=== PATIENT | male | born 1950 | race Caucasian/White ===

== ENCOUNTER 2017-06-14 06:00 | Inpatient (IN) | payer MEDICARE, BC ==
--- NOTE | 2017-06-06 08:52 | HP ---
AMENDED REPORT NOW INCLUDES COSIGNER DESIGNATION - ESIGNED BEFORE ADJUSTMENT DATE OF ADMISSION: 06/14/17 DATE OF OFFICE VISIT: 06/05/17 SURGEON: Negrita Schulz MD ATTENDING PHYSICIAN: Negrita Schulz MD * (dictated by HOA Ordonez) PROCEDURE: Left total knee arthroplasty. CHIEF COMPLAINT: Left knee pain. HISTORY OF PRESENT ILLNESS: Mr. Saez is a 66-year-old gentleman with complaints of left knee pain secondary to advanced osteoarthritis. He has failed conservative management and has elected to proceed with a left total knee arthroplasty which is scheduled for 06/14/[address] Schulz. PAST MEDICAL HISTORY: 1. Hypertension. 2. Diabetes. 3. High cholesterol. 4. Aortic stenosis. 5. Heart murmur. 6. GERD. 7. CVA. 8. Vascular dementia. PAST SURGICAL HISTORY: 1. Left knee reconstruction. 2. Multiple arthroscopies of the left knee. 3. Cataract removal and tonsillectomy. CURRENT MEDICATIONS: 1. Aspirin 81 mg a day. 2. Diltiazem 240 mg every day. 3. Crestor 5 mg every day. 4. Exelon patch. 5. Glucophage 500 mg two by mouth twice a day. 6. Namenda 5 mg. 7. Senna laxative. 8. Aleve. 9. Clonazepam 1 mg. ALLERGIES: No known drug allergies. FAMILY HISTORY: Unknown; he's adopted. SOCIAL HISTORY: He's a 66-year-old gentleman. He lives with his . He does not smoke, use drugs, uses alcohol rarely. REVIEW OF SYSTEMS: A complete 14-point review of systems was reviewed with the patient. The patient was positive for diabetes and a history of multiple strokes. PHYSICAL EXAMINATION GENERAL: He's well developed, well nourished, in no acute distress. VITAL SIGNS: He stands 5 feet 7 inches tall, weighs 155 pounds. His blood pressure is 140/77, and his heart rate is 75. HEENT: Normocephalic, atraumatic. NECK: Supple. No palpable lymph nodes. PULMONARY: The lungs are clear to auscultation bilaterally. CARDIO: Regular rate and rhythm. Strong S1 and S2. ABDOMEN: Soft, nontender, nondistended. NEUROLOGIC: Alert and oriented x3. Cranial nerves II through XII are intact. MUSCULOSKELETAL: Left lower extremity skin is intact. There are no open wounds or abrasions. 5 to 120 degrees of flexion, MCL laxity, negative Gomez's, 5/5 lower extremity strength. 2+ dorsalis pedis pulses and intact sensation. ASSESSMENT AND PLAN: Mr. Saez is a 65-year-old gentleman with complaints of left knee pain secondary to post-traumatic arthritis, which is quite severe, of his left knee. He has failed conservative management and has elected to proceed with a left total knee arthroplasty which is scheduled for 06/14/[address] Schulz discussed the risks and benefits of the surgery at today's visit, and all of his questions were answered. Percocet, Colace and Coumadin were sent to his pharmacy for post-operative pain control and DVT prophylaxis. He will see Dr. Schulz two weeks after the surgery. HOA ORDONEZ [id number]/[facility] #: [id number] [facility] CENTERMiladis
[~2017-06-14 06:00] MED LIST: Buffered Lidocaine 0.9% SYRIN* 5 ML/SYR SYRINGE INTRADERM ONE; Dexamethasone IV* 4 MG/ML 1 ML (4 MG) IV SLOW PU ONE; Famotidine IV* 10 MG/ML 2 ML (20 mg) IV ONE
[2017-06-14] MEDS ORDERED: ceFAZolin 2 GM PREMIX(*) 2 GM/50 ML BAG IVPB ONE (06:11)
[2017-06-14] MEDS ORDERED: Dexamethasone IV* 4 MG/ML 1 ML (4 MG) ONE (06:11)
[2017-06-14] MEDS ORDERED: Famotidine IV* 10 MG/ML 2 ML (20 mg) ONE (06:11)
[2017-06-14] MEDS ORDERED: KETAMINE HCL* 50 MG/ML 10 ML VIAL ONE (07:29)
[2017-06-14] MEDS ORDERED: Ondansetron INJ* 2 MG/ML VIAL ONE (07:30)
[2017-06-14] MEDS ORDERED: Phenylephrine INJ* 10 MG/ML 1 ML VIAL (10 MG) ONE (07:30)
[2017-06-14] MEDS ORDERED: Bupivacaine 0.5% SDV PF* 30 ML VIAL ONE (07:30)
[2017-06-14] MEDS ORDERED: Morphine PF AMP (0.5MG/ML)* 5 MG/10 ML AMP ONE (07:30)
[2017-06-14] MEDS ORDERED: Midazolam* 1 MG/ML 5 ML VIAL (5 MG) ONE (07:30)
[2017-06-14] MEDS ORDERED: Propofol* 10 MG/ML 20 ML BTL IV PUSH ONE ×2 (07:30→10:37)
[2017-06-14] MEDS ORDERED: EPHEDrine (Pressors)* 50 MG/ML VIAL IV PUSH PRN (08:45)
[2017-06-14] MEDS ORDERED: oxyCODONE/Acetamin 5/325 MG* TAB PO PRN ×3 (08:45→11:11)
[2017-06-14] MEDS ORDERED: Nalbuphine* 20 MG/ML 1 ML VIAL IV PRN ×2 (08:45)
[2017-06-14] MEDS ORDERED: DiMENhydriNATE IV* 50 MG/ML VIAL IV PUSH PRN (08:45)
[2017-06-14] MEDS ORDERED: Ondansetron INJ* 2 MG/ML VIAL IV PRN ×2 (08:45→11:11)
[2017-06-14] MEDS ORDERED: Naloxone* 0.4 MG/ML 1 ML VIAL IV PRN (08:45)
[2017-06-14] MEDS ORDERED: fentaNYL* 50 MCG/ML 2 ML VIAL (100 MCG VIAL) IV PRN (08:45)
[2017-06-14] MEDS ORDERED: Phenylephrine IV* 40 MCG/ML 10 ML SYRINGE IV PUSH PRN (08:53)
[2017-06-14] MEDS ORDERED: Ropivacaine* 300 MG in NS 0.9% 250 ML* 240 ML EPIDURAL SCH (09:00)
[2017-06-14] MEDS ORDERED: EPHEDrine (Pressors)* 50 MG/ML VIAL ONE (10:18)
[2017-06-14] MEDS ORDERED: Acetaminophen TAB* 325 MG PO PRN (11:11)
[2017-06-14] MEDS ORDERED: Polyethylene Glycol 3350* 17 GM PACKET PO PRN (11:11)
[2017-06-14] MEDS ORDERED: diPHENhydraMINE IV* 50 MG/ML 1 ml VIAL (BENADRYL) IV PRN (11:11)
[2017-06-14] MEDS ORDERED: Morphine INJ* 2 MG/ML 1 ML SYRINGE IV PRN (11:11)
[2017-06-14] MEDS ORDERED: oxyCODONE TAB* 5 MG TAB PO PRN (11:11)
[2017-06-14] MEDS ORDERED: D5W 1/2 NS 1000 ML BAG* 1,000 ML IV SCH (12:00)
--- NOTE | 2017-06-14 12:50 | RAD ---
INDICATION: Status post left TKA COMPARISON: Preoperative knee radiograph dated May 08, 2017 TECHNIQUE: 2 view radiograph of the left knee. FINDINGS: The recently implanted left knee prosthesis is anatomically aligned in the AP and lateral projections. Expected postsurgical changes include subcutaneous gas and a surgical drain. Overlying the lateral margin of the left lateral compartment there is a 4 mm radiodense focus that appears to be some sort of surgical material. IMPRESSION: 1. Anatomic alignment of left knee prosthesis. 2. Immediately lateral to the lateral joint space is a 4 mm surgical clip. Please correlate to details of the surgery. Findings discussed with HOA Heda over the telephone at 1246 hours on June 14, 2017.
[2017-06-14 13:28] LABS: Hematocrit 31 % (42-52); Hemoglobin 10.4 g/dl (14.0-18.0)
[2017-06-14] MEDS ORDERED: Dextrose 50% Syringe 50 ML* 25 GM/50 ML SYRINGE IV PUSH PRN (14:10)
[2017-06-14] MEDS ORDERED: ceFAZolin 1 GM ADVAN(*) 1 GM in NS 0.9% 50 ML* 50 ML IVPB SCH (14:30)
[2017-06-14] MEDS: Scopolamine 1.5 mg* PATCH TRANSDERM SCH (14:52)
[2017-06-14] MEDS ORDERED: RIVASTIGMINE 4.6 MG TRANSDERM SCH (14:56)
[2017-06-14] MEDS: ceFAZolin 1 GM ADVAN(*) 1 GM in NS 0.9% 50 ML* 50 ML IVPB SCH (15:43)
[2017-06-14] MEDS: Insulin LISPRO* 1 UNITS UNIT SUBCUT SCH (16:00)
[2017-06-14] MEDS: RIVASTIGMINE 4.6 MG TRANSDERM SCH (16:24)
[2017-06-14] MEDS ORDERED: Warfarin TAB(*) 6 MG PO ONE (17:00)
[2017-06-14] MEDS: Docusate CAP* 100 MG PO SCH (20:13)
[2017-06-14] MEDS: Atorvastatin* 10 MG TAB PO SCH (20:14)
[2017-06-14] MEDS: Memantine TAB* 5 MG PO SCH (20:14)
[2017-06-14] MEDS ORDERED: CLONAZEPAM 0.5 MG PO SCH (21:00)
--- NOTE | 2017-06-14 21:30 | CONS ---
CC: Dr. Schulz; Dr. Baxter * CONSULTATION REPORT: DATE OF CONSULT: 06/14/17 REQUESTING PHYSICIAN FOR CONSULTATION: Dr. Schulz. ATTENDING PHYSICIAN WHILE IN THE HOSPITAL: Renetta Estevez DO (report dictated by Eh King NP). REASON FOR MEDICAL CONSULTATION: Evaluation and medical management of comorbid medical conditions. HISTORY OF PRESENTING ILLNESS: I will refer you to Dr. Schulz's H and P for further details. In short, Mr. Saez is a 66-year-old male patient with history of hypertension, diabetes, hyperlipidemia, moderate aortic stenosis, GERD, CVA x2, and history of vascular dementia which he follows Dr. Sarabia for. He sees Dr. Yanez as well and he also follows up with his primary doctor , Dr. Baxter. He has had significant left knee pain for some time. He has been failing out-patient conservative therapy. He sought care with Dr. Schulz who felt that he would benefit from a total knee replacement. The patient opted to undergo total knee replacement today, which he underwent. He was evaluated in the PACU. He states he is feeling well. He actually would like to watch the [employer] game, that is his biggest complaint. He states he feels a little drowsy. He denies having any chest pain or shortness of breath. Denies having any abdominal pain. He states he does not feel nauseous. He states his pain is well controlled in his knee on epidural. Because of his medical problems and medical conditions, we were asked to evaluate in consult. PAST MEDICAL HISTORY: Significant for: 1. Hypertension. 2. Diabetes. 3. Hyperlipidemia. 4. Moderate aortic stenosis. 5. GERD. 6. History of CVA x3. 7. Vascular dementia. PAST SURGICAL HISTORY: 1. He has had a left knee reconstruction. 2. He has had multiple left knee arthroscopies. 3. Cataracts. 4. Tonsillectomy. HOME MEDICATIONS: According to the preop list we obtained include: 1. Diltiazem 240 mg p.o. daily. 2. Clonazepam 0.5 mg at bedtime. 3. Aspirin 81 mg daily. 4. Naproxen 220 mg p.o. daily as needed. 5. 500 mg p.o. b.i.d. 6. Namenda 5 mg p.o. b.i.d. 7. Exelon 1 patch transdermally daily. 8. Senna 2 tabs p.o. at bedtime as needed. 9. Crestor 5 mg daily at bedtime. 10. Geodon 40 mg daily. 11. Colace 100 mg p.o. daily at bedtime as needed. ALLERGIES: To medications include no known drug allergies. FAMILY HISTORY: Unknown as he is adopted. SOCIAL HISTORY: He does not smoke, does not drink. Surrogate decision maker is his . REVIEW OF SYSTEMS: There is no documented fever. He denies having any significant weight change. There is no double vision. There is no ear discharge. He denies having any rhinorrhea. There is no sore throat. No thyroid enlargement. Denies having any chest pain. There is no orthopnea. No nocturnal dyspnea. No abdominal pain. No nausea. No vomiting. No dysuria. No frequency. No seizure. No loss of consciousness. No pruritus and no skin ulcerations. Review of 14 systems completed, all others negative. PHYSICAL EXAM: Vital Signs: Blood pressure 113/62 with the pulse of 55, respirations 17, O2 sat 100% on 2 L, and temperature 96.8. General: At this time, Mr. Saez is a 66-year-old male patient, he appears to be well nourished , well developed. He does not appear to be in any acute distress. He is awake and he is alert. HEENT: Head is atraumatic and normocephalic. Eyes: EOMs are intact. Sclerae anicteric and not pale. Neck: Supple. Throat: Oral mucosa appears to be moist. No oropharyngeal erythema. Heart: Sounds S1 and S2. Regular rate and rhythm. No murmurs, rubs, or gallops. Lungs: Clear to auscultation bilaterally. No wheezes, rales, or rhonchi. Abdomen: Soft, it was flat, nontender. Bowel sounds present. Extremities: Pulses are +2 throughout. Distal CSM checks are intact to the left lower extremity. He is able to move the upper extremity with 5/5 strength. Neurologic: He is awake. He is alert. He is oriented x3. Speech is clear. His tongue midline. He had no gross focal deficits. Skin: Intact with the exception that he has incision to the left knee with a Hemovac that was clean, dry and intact, covered with Corey bandage. DIAGNOSTIC STUDIES/LAB DATA: His labs revealed hemoglobin today at 10.4, hematocrit of 31. His preop labs revealed BUN of 9, creatinine of 0.8. Urine obtained preop was negative. He had an echo preop, which showed progressing aortic stenosis to a moderate degree. His EF was 60% to 65%. He had a preop stress test which showed normal cardiac and nuclear stress test. He did have a brain CT done yesterday, which read no acute intracranial abnormality. He did have a chest x- ray, which revealed no active cardiopulmonary disease. Old medical records were reviewed. ASSESSMENT AND PLAN: Mr. Saez is a 66-year-old male patient with multiple medical problems coming into the orthopedics service today for elective left total knee. Hospitalist service was asked to evaluate in consult. Our recommendations at this point are: 1. Status post left total knee replacement. I will go ahead and defer the management of this to Dr. Schulz and her team. 2. Hypertension. In the setting with him having an epidural and his blood pressure being in the one teens, I am going to hold his meds. We can restart his Cardizem within probably 24 hours and when the epidural is removed. 3. Diabetes, he will be on a lispro sliding scale. 4. Hyperlipidemia. Continue Crestor. 5. Aortic stenosis. He can follow with Dr. Yanez. It is moderate. 6. Gastroesophageal reflux disease. Continue as prescribed. 7. History of cerebrovascular accident. Continue with secondary prevention in the form of aspirin. He will be on Coumadin, but I will restart the aspirin when it is safe with Dr. Schulz. 8. History of vascular dementia. Continue his meds as prescribed and supportive care. 9. DVT prophylaxis. I will defer to the primary team. 10. Code status. Full code. 11. Fluids, electrolytes, and nutrition. I would recommend a consistent carb diet. TIME SPENT: Time spent on the consult was 60 minutes, greater than half the time was spent [id number] with the patient obtaining my history of physical, the other half time was spent going over the plan of care with the patient and implementing plan of care. I did discuss the plan of care with my attending, Dr. Estevez, who is in agreement. EH KING NP [id number]/[facility] #: [id number] KHLOE
[2017-06-15] MEDS: ceFAZolin 1 GM ADVAN(*) 1 GM in NS 0.9% 50 ML* 50 ML IVPB SCH ×2 (00:36→09:07)
--- NOTE | 2017-06-15 05:18 | OP ---
OPERATIVE NOTE: DATE OF OPERATION: 06/14/17 DATE OF : 46 ATTENDING SURGEON: Negrita Schulz MD FIELD ADMINISTRATOR: HOA Ang Ms. did help throughout the procedure with preparation of the leg, wound retraction, manipulation of the knee and wound closure. FIELD ADMINISTRATOR: MD Dr. Jean-Claude Perkins did help with obtaining hemostasis of the lateral genicular artery with a vascular clip. ANESTHESIOLOGIST: Dr. Phillips. ANESTHESIA: Spinal. PRE-OP DIAGNOSIS: Severe end-stage posttraumatic osteoarthritis of the left knee joint. 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 OPERATIVE PROCEDURE: Left total knee arthroplasty. COMPLICATIONS: None. ESTIMATED BLOOD LOSS: 650 cc. TOURNIQUET TIME: 65 minutes. SPECIMEN: Bone and cartilage from the left knee joint sent to Pathology. HARDWARE USED: This is uncemented [employer] total knee arthroplasty hardware. Two packages of Simplex bone cement. For the femur, a size 6 left narrow Oxinium posterior stabilized femoral component. For the tibia, a size 5 left tibial baseplate. For the insert, a 9-mm constrained articular insert size 5/6. For the patella, size 32-mm 3-peg all poly patella. One medium Hemoclip was used for the lateral genicular artery. BRIEF HISTORY/INDICATIONS: Mr. Saez is a 66-year-old gentleman with a long history of left knee pain. He had knee joint dislocation 20 years ago with complete tearing of the ACL, PCL and MCL. Since that time, he has developed chronic pain and advanced posttraumatic arthritis of the knee joint with bone-on - bone arthritis and bone deformity. Radiographs showed [id number] arthritis. He has failed conservative with antiinflammatories, pain medications , intraarticular injections, and physical therapy. He elected to undergo left total knee arthroplasty due to continued pain and decreased quality of life. Informed consent was obtained from the patient. He understood the risks of the procedure included, but were not limited to bleeding, infection, damage to nearby structures, continued pain, need for further surgery, intraoperative fracture, nerve palsy, hardware failure, loosening, knee stiffness, loss of motion, stroke, heart attack, blood clot, and . Specific to this patient, he understood that if I could not obtain stability of the knee joint with a constrained implant, then I would use a hinged knee implant. INTRAOPERATIVE FINDINGS: Intraoperatively, the patient was noted to have severe deformity of the distal femoral and proximal tibial bone with posttraumatic changes. He had an incompetent MCL which was noted throughout the case. There was a large amount of scar tissue around the knee joint. There was no obvious purulence. Several culture swabs were sent for microbiology evaluation. DESCRIPTION OF PROCEDURE: Mr. Saez was identified in the preanesthesia unit. His left lower extremity was marked as the correct operative side. Informed consent was signed and placed in the chart. The patient was taken to the operating room and placed under spinal anesthesia. A Kaur catheter was placed. Tourniquet was placed on the left thigh. Left lower extremity was prepped and draped in the usual sterile fashion. Preop time-out was made to correctly identify the patient's side and site. Appropriate perioperative antibiotics were given within 1 hour of incision. Tourniquet was inflated and total tourniquet time for this procedure was 65 minutes. The patient's medial incision was used and also curved laterally at the midportion for a near standard midline incision. This was incised down to the extensor mechanism. A new 10-blade was used to make a standard medial parapatellar arthrotomy. The patella was subluxed laterally. Electrocautery was used to subperiosteally elevate soft tissue off the superomedial tibia to the mid sagittal plane. The knee was flexed up. It was noted that there was a large scar tissue in the suprapatellar pouch and gutters. This was carefully removed and there were some loose bodies in the soft tissue. Multiple culture swabs were obtained and sent for cultures and sensitivities. There was no obvious purulence. A drill was used to enter the distal femur. Intramedullary distal femoral cutting guide was pinned on the distal femur. A 9 mm of distal femur was carefully removed with an oscillating saw. External rotation guide was placed down the distal femur. Distal femur was then sized to size 6. Size 6 multi-cutting jig was pinned on the distal femur and the appropriate four chamfer cuts were made. The PCL was completely released and the tibia was subluxed anteriorly. There was extreme bony deformity of the proximal tibia, both medially and laterally. Extramedullary tibial cutting guide was pinned on the proximal tibia. The oscillating saw was used to make the appropriate proximal tibial cut. The knee was brought out to full extension. The spacer block had good fit. The MCL incompetence was once again noted. There was a large amount of medial tibial plateau osteophyte which was carefully removed with a rongeur. There was good flexion and extension gap balancing. The knee was flexed up. Lamina comic book writer was placed both medially and laterally. Any remaining meniscus was carefully removed with electrocautery. Posterior osteophytes were removed using a curved osteotome. A left narrow size 6 femoral trial was impacted on to the distal femur and had excellent fit. The box for the posterior stabilized implant was prepared using a reamer and box-cut osteotome. A 5 tibial tray trial with an 9 mm insert trial was placed and the knee was taken through a range of motion. The knee had full extension to 130 degrees of flexion with satisfactory patellofemoral tracking. The patella was everted. 9 mm of patellar bone and cartilage were carefully removed. The patella was sized to size 32. The 3 peg holes were drilled for the size 32 guide. A 32 trial patella was placed and the knee was taken through range of motion. There was good patellofemoral tracking. All trials were carefully removed. The tibia was subluxed anteriorly and sized to a size 5. Proximal tibia was prepared using a size 5 keel punch. All bony cut surfaces were copiously irrigated with sterile saline and dried. Final implants were cemented into place, starting with the tibia followed by the femur , and lastly the patella. A 9-mm insert trial was placed and the knee was brought out into full extension. The tourniquet was turned down at 59 minutes. The knee was copiously irrigated with sterile saline. Once the the cement had fully cured, the insert trial was removed. Posterior capsule was checked for any bleeding. It was noted that the lateral geniculate vessels had significant bleeding. Electrocautery was not sufficient. Dr. Bermeo of General Surgery did scrub into the case and assist with obtaining hemostasis. One medium Hemoclip was placed along the lateral genicular vessel. At this point, tourniquet was used to aid with obtaining hemostasis and was once again turned down at 65 minutes total. There was no further bleeding laterally along the genicular artery region. No posterior capsular bleeding. The final insert chosen was a 9 constrained articular insert, size 5/6. This was locked in to position on the tibial tray. Stability of the insert was checked and rechecked and noted to be stable. The knee was copiously irrigated with sterile saline. The extensor mechanism was closed over a medium Hemovac drain using interrupted #1 Vicryl. The rest of the incision was closed in layered fashion using 0 and 2-0 Vicryl. Skin was closed using running 3-0 nylon suture. Sterile Xeroform, 4 x 4, and Webril were used to cover the incision. Corey wrap and cold pack were placed over this. The patient's anesthesia was reversed without difficulty. He was taken to the PACU in stable condition. Intended weightbearing will be weightbearing as tolerated. Intended DVT prophylaxis will be Coumadin with a Lovenox bridge. [id number]/[facility] #: [id number] [facility] CENTERMiladis
[2017-06-15 05:23] LABS: Hematocrit 25 % (42-52); Hemoglobin 8.3 g/dl (14.0-18.0); Mean Corpuscular HGB Conc 33 g/dl (31-36); Mean Corpuscular Hemoglobin 31 pg (27-31); Mean Corpuscular Volume 94 fL (80-94); Mean Platelet Volume 9 um3 (7.4-10.4); Red Blood Count 2.66 10^6/ul (4.0-5.4); Red Cell Distribution Width 13 % (10.5-15); White Blood Count 18.3 10^3/ul (3.5-10.8)
[2017-06-15] MEDS: oxyCODONE/Acetamin 5/325 MG* TAB PO PRN ×2 (05:31→10:06)
[2017-06-15 05:53] LABS: BUN/Creatinine Ratio 14.9 (8-20); Calcium 8.8 mg/dL (8.6-10.3); EGFR African American 151.7 (>60); Potassium 4.1 mmol/L (3.5-5.0)
--- NOTE | 2017-06-15 07:32 | PN ---
Progress Note - Progress Note Date of Service: 06/15/17 SOAP: Subjective: Pt. is alert but confused this AM. Pain is controlled. Objective: LLE - drain removed, tip intact with 200 cc ss drainage. no edema. distally + df/pf/ ehl, full sens lt, 2+ dp and pt pulses. warm, pink foot. Vital Signs: Temp Pulse Resp BP Pulse Ox 98.0 F 78 20 139/70 100 06/15/17 03:35 06/15/17 03:35 06/15/17 05:31 06/15/17 03:35 06/15/17 03:35 Laboratory Results - last 24 hr 06/14/17 06/14/17 06/14/17 12:30 13:41 15:50 WBC RBC Hgb 10.4 L Hct 31 L MCV MCH MCHC RDW Plt Count MPV Neut % (Auto) Lymph % (Auto) [place] % (Auto) Eos % (Auto) Baso % (Auto) Absolute Neuts (auto) Absolute Lymphs (auto) Absolute Monos (auto) Absolute Eos (auto) Absolute Basos (auto) Absolute Nucleated RBC Nucleated RBC % INR (Anticoag Therapy) Sodium Potassium Chloride Carbon Dioxide Anion Gap BUN Creatinine Est GFR ( Amer) Est GFR (Non-Af Amer) BUN/Creatinine Ratio Glucose POC Glucose (mg/dL) 253 H 302 H Calcium 06/15/17 06/15/17 06/15/17 05:04 05:04 05:04 WBC 18.3 H RBC 2.66 L Hgb 8.3 L Hct 25 L MCV 94 MCH 31 MCHC 33 RDW 13 Plt Count 189 MPV 9 Neut % (Auto) 85.5 H Lymph % (Auto) 7.1 L [place] % (Auto) 7.3 Eos % (Auto) 0 Baso % (Auto) 0.1 Absolute Neuts (auto) 15.7 H Absolute Lymphs (auto) 1.3 Absolute Monos (auto) 1.3 H Absolute Eos (auto) 0 Absolute Basos (auto) 0 Absolute Nucleated RBC 0 Nucleated RBC % 0 INR (Anticoag Therapy) 1.19 H Sodium 136 Potassium 4.1 Chloride 103 Carbon Dioxide 29 Anion Gap 4 BUN 10 Creatinine 0.67 Est GFR ( Amer) 151.7 Est GFR (Non-Af Amer) 118.0 BUN/Creatinine Ratio 14.9 Glucose 201 H POC Glucose (mg/dL) Calcium 8.8 Assessment: 66 yo M pod 1 s/p LTKA Plan: prbc 2 units today for acute postop blood loss and aortic stenosis baseline wbat lle limit pain meds for confusion 6 mg coumadin and lovenox today pt/ot
[2017-06-15] MEDS ORDERED: Diltiazem CD CAP* 240 MG PO SCH (09:00)
[2017-06-15] MEDS ORDERED: Rivastigmine PATCH 4.6 MG(NF) PATCH TRANSDERM SCH (09:00)
[2017-06-15] MEDS: Ziprasidone * 20 MG CAP (generic Geodon) PO SCH (09:06)
[2017-06-15] MEDS: Memantine TAB* 5 MG PO SCH ×2 (09:06→20:23)
[2017-06-15] MEDS: Magnesium Hydroxide LIQ* 30 ML UDC PO PRN (09:07)
[2017-06-15] MEDS: Docusate CAP* 100 MG PO SCH ×2 (09:07→20:24)
[2017-06-15] MEDS: Vitamin THERAPEUTIC TAB PO SCH (09:07)
[2017-06-15] MEDS: Insulin LISPRO* 1 UNITS UNIT SUBCUT SCH ×3 (09:10→18:13)
--- NOTE | 2017-06-15 15:50 | PN ---
Subjective Date of Service: 06/15/17 Interval History: Patient seen and examined at bedside. Denies fever, chills, lightheadedness or dizziness, shortness of breath, chest discomfort, N/V/D. Family History: Unchanged from Admission Social History: Unchanged from Admission Past Medical History: Unchanged from Admission Objective Active Medications: Acetaminophen (Tylenol Tab*) 650 mg PO Q4H PRN Reason: PAIN OR TEMPERATURE Atorvastatin Calcium (Lipitor*) 10 mg PO BEDTIME DELON Reason: Protocol Dextrose (D50w Syringe 50 Ml*) 12.5 gm IV PUSH .FOR FS < 60 - SS PRN Reason: FS < 60 Diphenhydramine HCl (Benadryl Iv*) 25 mg IV Q6H PRN Reason: itching or insomnia Docusate Sodium (Colace Cap*) 100 mg PO BID DELON Dextrose/Sodium Chloride (D5w 1/2 Ns 1000 Ml Bag*) 1,000 mls @ 100 mls/hr IV PER RATE DELON Insulin Human Lispro (Humalog*) 0 units SUBCUT AC DELON Reason: Protocol Lactulose (Lactulose*) 30 ml PO Q6H PRN Reason: constipation Magnesium Hydroxide (Milk Of Magnesia Liq*) 30 ml PO Q6H PRN Reason: constipation Memantine (Namenda Tab*) 5 mg PO BID DELON Morphine Sulfate (Morphine Inj (Syringe)*) 2 mg IV Q30M PRN Reason: PAIN - UNCONTROLLED Multivitamins (Theragran Tab*) 1 tab PO DAILY DELON (Clonazepam [ Clonazepam Odt] 0.5 Mg) 0.5 mg PO BEDTIME DELON Ondansetron HCl (Zofran Inj*) 4 mg IV Q6H PRN Reason: nausea Oxycodone HCl (Roxycodone Tab*) 10 mg PO Q4H PRN Reason: PAIN - SEVERE Oxycodone/Acetaminophen (Percocet 5/325 Tab*) 1 tab PO Q3H PRN Reason: moderate pain Oxycodone/Acetaminophen (Percocet 5/325 Tab*) 2 tab PO Q4H PRN Reason: moderate pain Oxycodone/Acetaminophen (Percocet 5/325 Tab*) 1 tab PO Q3H PRN Reason: PAIN - MODERATE Oxycodone/Acetaminophen (Percocet 5/325 Tab*) 2 tab PO Q3H PRN Reason: PAIN - MODERATE TO SEVERE Pharmacy Profile Note (Scopolomine Patch Remove*) 1 note PATCH OFF .AFTER 72 HOURS ONE Stop: 06/17/17 08:52 Pharmacy Profile Note (Coumadin Daily Reminder*) 1 note FOLLOW UP 1700 [facility] Polyethylene Glycol/Electrolytes (Miralax*) 17 gm PO DAILY PRN Reason: Constipation Rivastigmine (Exelon(Nf)) 1 patch TRANSDERM DAILY@1630 [facility] Scopolamine (Transderm-Scop 1.5 Mg Patch*) 1 patch TRANSDERM Q72H [facility] Warfarin Sodium (Coumadin Tab(*)) 6 mg PO ONCE@1700 ONE Stop: 06/15/17 17:01 Ziprasidone (Geodon (Generic) *) 40 mg PO DAILY [facility] Vital Signs 06/14/17 06/14/17 06/14/17 16:29 17:42 18:29 Temperature 98.4 F 98.6 F Pulse Rate 64 66 Respiratory 20 18 19 Rate Blood Pressure 108/53 108/55 (mmHg) O2 Sat by Pulse 96 99 Oximetry 06/14/17 06/14/17 06/14/17 20:24 20:27 21:40 Temperature 98.0 F Pulse Rate 71 Respiratory 18 18 17 Rate Blood Pressure 111/54 (mmHg) O2 Sat by Pulse 98 Oximetry 06/14/17 06/15/17 06/15/17 23:49 00:00 02:08 Temperature 98.0 F Pulse Rate 69 Respiratory 16 Rate Blood Pressure 119/56 (mmHg) O2 Sat by Pulse 99 99 99 Oximetry 06/15/17 06/15/17 06/15/17 03:35 05:31 07:30 Temperature 98.0 F Pulse Rate 78 Respiratory 16 20 16 Rate Blood Pressure 139/70 (mmHg) O2 Sat by Pulse 100 Oximetry 06/15/17 06/15/17 06/15/17 07:31 07:36 09:57 Temperature 98.1 F 98.1 F Pulse Rate 75 89 Respiratory 16 11 16 Rate Blood Pressure 124/55 129/56 (mmHg) O2 Sat by Pulse 99 99 Oximetry 06/15/17 06/15/17 06/15/17 10:06 11:16 13:23 Temperature 97.3 F Pulse Rate 81 Respiratory 16 14 18 Rate Blood Pressure 128/54 (mmHg) O2 Sat by Pulse 98 Oximetry Oxygen Devices in Use Now: None Appearance: NAD, laying in bed Ears/Nose/Mouth/Throat: Mucous Membranes Moist Respiratory: Symmetrical Chest Expansion and Respiratory Effort, Clear to Auscultation Cardiovascular: RRR, - - Grade 2-3/6 systolic murmur at the 2nd ICS Abdominal: NL Sounds; No Tenderness; No Distention Skin: No Rash or Ulcers Neurological: Alert and Oriented x 3 - , confused, NL Muscle Strength and Tone Lines/Tubes/Other Access: Clean, Dry and Intact Peripheral IV - site benign Nutrition: Taking PO's Result Diagrams: 06/15/17 05:04 06/15/17 05:04 Microbiology and Other Data: Microbiology 06/14/17 09:00 Anaerobic Culture - Preliminary Wound - Knee Left No Growth Day 1 06/14/17 09:00 Gram Stain - Final Knee Left Wound Culture - Preliminary No Growth Day 1 Assess/Plan/Problems-Billing Assessment: Mr. Saez is a 66 yo male with PMH significant for HTN, DM, HLD, moderate , GERD hx CVA and vascular dementia who presented to the hospital for an elective left total knee replacement on 06/14/[address] Schulz. - Patient Problems (1) Status post total left knee replacement Code(s): Z96.652 - PRESENCE OF LEFT ARTIFICIAL KNEE JOINT SNOMED Code(s): 6220683286081 Comment: - POD #1 - Management per Orthopedics - Trend HH - Continue pain control, OT/PT, bowel regimen (2) Acute blood loss anemia Code(s): D62 - ACUTE POSTHEMORRHAGIC ANEMIA SNOMED Code(s): 365090357 Comment: - Secondary to surgery - HH down today - Received 2 units PRBCs per Ortho today (3) Leukocytosis Code(s): D72.829 - ELEVATED WHITE BLOOD CELL COUNT, UNSPECIFIED SNOMED Code(s) : 676239621 Comment: - Afebrile - Suspect this is secondary to a stress response - Will check UA today (4) HTN (hypertension) Code(s): I10 - ESSENTIAL (PRIMARY) HYPERTENSION SNOMED Code(s): 44777760 Comment: - Normotensive, SBP 110-130s - Resume Cardizem (5) Diabetes Code(s): E11.9 - TYPE 2 DIABETES MELLITUS WITHOUT COMPLICATIONS SNOMED Code(s) : 61780923 Comment: - Glucose 120-300's - Continue to hold metformin - Continue Lispro SS (6) HLD (hyperlipidemia) Code(s): E78.5 - HYPERLIPIDEMIA, UNSPECIFIED SNOMED Code(s): 11326511 Comment: - Continue statin (7) Aortic stenosis Code(s): I35.0 - NONRHEUMATIC AORTIC (VALVE) STENOSIS SNOMED Code(s): 47521328 Comment: - Moderate - Follow with Dr. Yanez outpatient as needed (8) History of CVA (cerebrovascular accident) Code(s): Z86.73 - PRSNL HX OF TIA (TIA), AND CEREB INFRC W/O RESID DEFICITS SNOMED Code(s): 845507073 Comment: - Resume Aspirin when approved by Orthopedics (9) Vascular dementia Code(s): F01.50 - VASCULAR DEMENTIA WITHOUT BEHAVIORAL DISTURBANCE SNOMED Code (s): 304114319 Comment: - Supportive care - Continue Excelon, clonazepam and Namenda (10) DVT prophylaxis Code(s): AZU0077 - SNOMED Code(s): 992748533 Comment: - Warfarin per Orthopedics (11) Full code status Code(s): Z78.9 - OTHER SPECIFIED HEALTH STATUS SNOMED Code(s): 586493646 Status and Disposition: Inpatient. Disposition per Orthopedics. Thank you for this consultation, we will continue to follow along.
[2017-06-15] MEDS: RIVASTIGMINE 4.6 MG TRANSDERM SCH (16:12)
[2017-06-15 16:49] LABS: Urine Bilirubin Negative (Negative); Urine Glucose 3+(>=500 mg/dL) (Negative); Urine Nitrite Negative (Negative)
[2017-06-15] MEDS ORDERED: Warfarin TAB(*) 6 MG PO ONE (17:00)
[2017-06-15] MEDS ORDERED: Ziprasidone IM INJ* 20 MG/ML VIAL IM ONE ×2 (17:18→21:16)
[2017-06-15] MEDS ORDERED: clonazePAM TAB(*) 0.5 MG ONE (18:39)
[2017-06-15] MEDS ORDERED: oxyCODONE TAB* 5 MG TAB PO PRN (18:39)
[2017-06-15] MEDS: clonazePAM TAB(*) 0.5 MG PO SCH ×2 (18:40→20:43)
[2017-06-15] MEDS: Atorvastatin* 10 MG TAB PO SCH (20:24)
[2017-06-16] MEDS: Acetaminophen TAB* 325 MG PO SCH ×4 (00:47→17:10)
[2017-06-16] MEDS ORDERED: Ziprasidone IM INJ* 20 MG/ML VIAL IM ONE (02:00)
[2017-06-16 05:42] LABS: Hematocrit 29 % (42-52); Hemoglobin 9.7 g/dl (14.0-18.0)
--- NOTE | 2017-06-16 07:53 | PN ---
Progress Note - Progress Note Date of Service: 06/16/17 SOAP: Subjective: 66 y/o male s/p L TKA 06/14/[address] Schulz. T max- 101. Objective: General- COnfused, alert to person, confused to place, paranoid behaviors, non- combative, follows commands, easily re-directed. MSK- surgical dressing removed, incision d/c/i, no drainage noted, minimal erythema, + DF/PF, PT 2+ HEENT- L eye with subconjunctival irritationm + watery discharge. EMOI, PERRLA Vital Signs Temp 100.7 F 06/16/17 03:51 Pulse 102 06/16/17 03:51 Resp 16 06/16/17 03:51 BP 158/59 06/16/17 03:51 Pulse Ox 94 06/16/17 03:51 Intake & Output 06/15/17 06/16/17 06/16/17 18:59 06:59 18:59 Intake Total 1372 450 Output Total 1125 0 Balance 247 450 Intake: IV Fluids 157 D5W 1/2 NS 157 Oral 580 450 Packed Cells 635 Output: Urine 900 0 Kaur 225 Other: Estimated Void Small Large # Bowel Movements 0 # Voids 1 2 Laboratory Results - last 24 hr 06/15/17 06/15/17 06/15/17 05:04 12:26 16:30 Hgb Hct INR (Anticoag Therapy) POC Glucose (mg/dL) 231 H Urine Color Yellow Urine Appearance Clear Urine pH 6.0 Ur Specific Plato 1.008 L Urine Protein Negative Urine Ketones Negative Urine Blood Negative Urine Nitrate Negative Urine Bilirubin Negative Urine Urobilinogen Negative Ur Leukocyte Esterase Negative Urine Glucose 3+(>=500 mg/dl) H Blood Type O Positive Antibody Screen Negative Crossmatch See Detail 06/16/17 06/16/17 05:21 05:21 Hgb 9.7 L Hct 29 L INR (Anticoag Therapy) 3.88 H POC Glucose (mg/dL) Urine Color Urine Appearance Urine pH Ur Specific Plato Urine Protein Urine Ketones Urine Blood Urine Nitrate Urine Bilirubin Urine Urobilinogen Ur Leukocyte Esterase Urine Glucose Blood Type Antibody Screen Crossmatch Assessment: 66 y/o male s/p L TKA 06/14/[address] Schulz. Plan: - DVT prophylaxis- INR supratheraputic 3.88, hold coumadin, continue to monitor INR - Post-op Delirium- hospitalist managing- required IM Geodon last night, limited narcotics - Anemia- s/p 2 units, H&H stable - Febrile- CXR negative, UA negative from 06/15, discussed with hostpitlist, possible transfusion reaction. Continue to monitor Active Medications Generic Name Dose Route Start Last Admin Trade Name Freq PRN Reason Stop Dose Admin Acetaminophen 975 mg 06/16/17 00:00 06/16/17 00:47 Tylenol Tab* PO 975 mg Q8H DELON Administration Atorvastatin Calcium 10 mg 06/14/17 21:00 06/15/17 20:24 Lipitor* PO 10 mg BEDTIME DELON Administration Protocol Clonazepam 0.5 mg 06/15/17 21:00 06/15/17 20:43 Klonopin Tab(*) PO Not Given BEDTIME DELON Dextrose 12.5 gm 06/14/17 14:10 D50w Syringe 50 Ml* IV PUSH .FOR FS < 60 - SS PRN FS < 60 Diltiazem HCl 240 mg 06/16/17 09:00 Cardizem Cd Cap* PO DAILY DELON Diphenhydramine HCl 25 mg 06/14/17 11:11 Benadryl Iv* IV Q6H PRN itching or insomnia Docusate Sodium 100 mg 06/14/17 21:00 06/15/17 20:24 Colace Cap* PO 100 mg BID DELON Administration Insulin Human Lispro 0 units 06/14/17 16:30 06/15/17 18:13 Humalog* SUBCUT Not Given AC DELON Protocol Lactulose 30 ml 06/14/17 11:11 Lactulose* PO Q6H PRN constipation Magnesium Hydroxide 30 ml 06/14/17 11:11 06/15/17 09:07 Milk Of Magnesia Liq* PO 30 ml Q6H PRN Administration constipation Memantine 5 mg 06/14/17 21:00 06/15/17 20:23 Namenda Tab* PO 5 mg BID DELON Administration Multivitamins 1 tab 06/15/17 09:00 06/15/17 09:07 Theragran Tab* PO 1 tab DAILY DELON Administration Ondansetron HCl 4 mg 06/14/17 11:11 Zofran Inj* IV Q6H PRN nausea Oxycodone HCl 5 mg 06/15/17 18:39 06/15/17 20:23 Roxycodone Tab* PO 5 mg Q4H PRN Administration PAIN - SEVERE Pharmacy Profile Note 1 note 06/17/17 08:51 Scopolomine Patch Remove* PATCH OFF 06/17/17 08:52 .AFTER 72 HOURS ONE Pharmacy Profile Note 1 note 06/14/17 17:00 06/15/17 16:54 Coumadin Daily Reminder* FOLLOW UP 1 note 1700 DELON Administration Polyethylene Glycol/Electrolytes 17 gm 06/14/17 11:11 Miralax* PO DAILY PRN Constipation Rivastigmine 1 patch 06/14/17 16:30 06/15/17 16:12 Exelon(Nf) TRANSDERM 1 patch DAILY@1630 DELON Administration Scopolamine 1 patch 06/14/17 09:00 06/14/17 14:52 Transderm-Scop 1.5 Mg Patch* TRANSDERM Not Given Q72H DELON Ziprasidone 40 mg 06/15/17 09:00 06/15/17 09:06 Geodon (Generic) * PO 40 mg DAILY DELON Administration
[2017-06-16] MEDS: Vitamin THERAPEUTIC TAB PO SCH (09:53)
[2017-06-16] MEDS: Ziprasidone * 20 MG CAP (generic Geodon) PO SCH ×2 (09:53→17:10)
[2017-06-16] MEDS: Diltiazem CD CAP* 240 MG PO SCH (09:53)
[2017-06-16] MEDS: Docusate CAP* 100 MG PO SCH ×2 (09:53→21:47)
[2017-06-16] MEDS: Memantine TAB* 5 MG PO SCH ×2 (09:54→21:50)
[2017-06-16] MEDS: Insulin LISPRO* 1 UNITS UNIT SUBCUT SCH ×3 (10:08→17:56)
--- NOTE | 2017-06-16 11:58 | RAD ---
INDICATION: Postoperative fever. COMPARISON: Comparison is made with a prior chest x-ray study from June 05, 2017. TECHNIQUE: AP and lateral views of the chest were obtained. FINDINGS: The heart is within normal limits in size. Mediastinal and hilar contours appear within normal limits. The lungs are under inflated and clear. No pleural effusion is seen. IMPRESSION: NO EVIDENCE FOR ACUTE FINDING.
--- NOTE | 2017-06-16 13:04 | PN ---
Subjective Date of Service: 06/16/17 Interval History: Patient seen and examined at bedside. Denies fever, chills, shortness or breath , chest discomfort, N/V/D. Pt's states that he doesn't have a psychiatric diagnosis and was diagnosed with vascular dementia when he was hospitalized in [place]. Pt continued to be combative and agitated over night, he required additional Geodon IM last night. Family History: Unchanged from Admission Social History: Unchanged from Admission Past Medical History: Unchanged from Admission Objective Active Medications: Acetaminophen (Tylenol Tab*) 975 mg PO Q8H DELON Atorvastatin Calcium (Lipitor*) 10 mg PO BEDTIME DELON Reason: Protocol Clonazepam (Klonopin Tab(*)) 0.5 mg PO BEDTIME DELON Dextrose (D50w Syringe 50 Ml*) 12.5 gm IV PUSH .FOR FS < 60 - SS PRN Reason: FS < 60 Diltiazem HCl (Cardizem Cd Cap*) 240 mg PO DAILY DELON Diphenhydramine HCl (Benadryl Iv*) 25 mg IV Q6H PRN Reason: itching or insomnia Docusate Sodium (Colace Cap*) 100 mg PO BID DELON Insulin Human Lispro (Humalog*) 0 units SUBCUT AC DELON Reason: Protocol Lactulose (Lactulose*) 30 ml PO Q6H PRN Reason: constipation Magnesium Hydroxide (Milk Of Magnesia Liq*) 30 ml PO Q6H PRN Reason: constipation Memantine (Namenda Tab*) 5 mg PO BID DELON Multivitamins (Theragran Tab*) 1 tab PO DAILY DELON Ondansetron HCl (Zofran Inj*) 4 mg IV Q6H PRN Reason: nausea Oxycodone HCl (Roxycodone Tab*) 5 mg PO Q4H PRN Reason: PAIN - SEVERE Pharmacy Profile Note (Scopolomine Patch Remove*) 1 note PATCH OFF .AFTER 72 HOURS ONE Stop: 06/17/17 08:52 Pharmacy Profile Note (Coumadin Daily Reminder*) 1 note FOLLOW UP 1700 DELON Polyethylene Glycol/Electrolytes (Miralax*) 17 gm PO DAILY PRN Reason: Constipation Rivastigmine (Exelon(Nf)) 1 patch TRANSDERM DAILY@1630 DELON Scopolamine (Transderm-Scop 1.5 Mg Patch*) 1 patch TRANSDERM Q72H DELON Ziprasidone (Geodon (Generic) *) 40 mg PO DAILY DELON Vital Signs 06/15/17 06/15/17 06/15/17 13:23 13:33 15:23 Temperature 98.2 F Pulse Rate 84 Respiratory 18 15 18 Rate Blood Pressure 135/63 (mmHg) O2 Sat by Pulse 98 Oximetry 06/15/17 06/15/17 06/15/17 15:36 16:17 17:17 Temperature 99.4 F Pulse Rate 86 Respiratory 18 16 18 Rate Blood Pressure 146/62 (mmHg) O2 Sat by Pulse 98 Oximetry 06/15/17 06/15/17 06/15/17 19:28 20:00 20:23 Temperature 97.6 F Pulse Rate 105 Respiratory 20 22 20 Rate Blood Pressure 143/64 (mmHg) O2 Sat by Pulse 99 Oximetry 06/15/17 06/15/17 06/15/17 20:40 22:23 23:28 Temperature 97.5 F Pulse Rate 107 Respiratory 22 18 20 Rate Blood Pressure 157/64 (mmHg) O2 Sat by Pulse 90 Oximetry 06/16/17 06/16/17 06/16/17 03:51 07:45 08:00 Temperature 100.7 F 98.1 F Pulse Rate 102 119 Respiratory 16 18 18 Rate Blood Pressure 158/59 (mmHg) O2 Sat by Pulse 94 98 96 Oximetry 06/16/17 06/16/17 06/16/17 08:09 09:50 10:39 Temperature 102.4 F 98.0 F Pulse Rate 114 Respiratory 18 Rate Blood Pressure 168/80 160/80 (mmHg) O2 Sat by Pulse 96 Oximetry 06/16/17 11:52 Temperature 98.1 F Pulse Rate 99 Respiratory 18 Rate Blood Pressure 145/64 (mmHg) O2 Sat by Pulse 98 Oximetry Oxygen Devices in Use Now: None Appearance: NAD, sitting up in bed Ears/Nose/Mouth/Throat: Mucous Membranes Moist Respiratory: Symmetrical Chest Expansion and Respiratory Effort, Clear to Auscultation Cardiovascular: NL Sounds; No Murmurs; No JVD, RRR Abdominal: NL Sounds; No Tenderness; No Distention Skin: No Rash or Ulcers, - - Dressing to left knee clean, dry and intact Neurological: NL Muscle Strength and Tone, - - Alert and Oriented to Person and Year, confused. Nutrition: Taking PO's Result Diagrams: 06/16/17 05:21 06/15/17 05:04 Microbiology and Other Data: Microbiology 06/14/17 09:00 Anaerobic Culture - Preliminary Wound - Knee Left No Growth Day 1 06/14/17 09:00 Gram Stain - Final Knee Left Wound Culture - Preliminary No Growth Day 1 Assess/Plan/Problems-Billing Assessment: Mr. Saez is a 66 yo male with PMH significant for HTN, DM, HLD, moderate , GERD hx CVA and vascular dementia who presented to the hospital for an elective left total knee replacement on 06/14/[address] Schulz. - Patient Problems (1) Status post total left knee replacement Code(s): Z96.652 - PRESENCE OF LEFT ARTIFICIAL KNEE JOINT SNOMED Code(s): 7259257880930 Comment: - POD #2 - Management per Orthopedics - HH stable, received 2 units of PRBCs yesterday - Continue pain control, OT/PT, bowel regimen (2) Postoperative delirium Code(s): F05 - DELIRIUM DUE TO KNOWN PHYSIOLOGICAL CONDITION SNOMED Code(s): 5559259 Comment: - Supportive care - Limit Narcotics - Will ask Psychiatry to consult to assist with medication management (3) Acute blood loss anemia Code(s): D62 - ACUTE POSTHEMORRHAGIC ANEMIA SNOMED Code(s): 158300749 Comment: - Secondary to surgery - HH stable - Received 2 units PRBCs yesterday (4) Leukocytosis Code(s): D72.829 - ELEVATED WHITE BLOOD CELL COUNT, UNSPECIFIED SNOMED Code(s) : 754352325 Comment: - Improved today - suspect secondary to stress response - Febrile this morning (102.4 temporal and 100.0 oral) - UA negative and chest xray WNL (5) HTN (hypertension) Code(s): I10 - ESSENTIAL (PRIMARY) HYPERTENSION SNOMED Code(s): 12574079 Comment: - Normotensive, SBP 140-160s - Continue Cardizem (6) Diabetes Code(s): E11.9 - TYPE 2 DIABETES MELLITUS WITHOUT COMPLICATIONS SNOMED Code(s) : 08337876 Comment: - Glucose 220-300's - Continue to hold metformin - Continue Lispro SS (7) HLD (hyperlipidemia) Code(s): E78.5 - HYPERLIPIDEMIA, UNSPECIFIED SNOMED Code(s): 82499703 Comment: - Continue statin (8) Aortic stenosis Code(s): I35.0 - NONRHEUMATIC AORTIC (VALVE) STENOSIS SNOMED Code(s): 80561298 Comment: - Moderate - Follow with Dr. Yanez outpatient as needed (9) History of CVA (cerebrovascular accident) Code(s): Z86.73 - PRSNL HX OF TIA (TIA), AND CEREB INFRC W/O RESID DEFICITS SNOMED Code(s): 725511453 Comment: - Resume Aspirin when approved by Orthopedics (10) Vascular dementia Code(s): F01.50 - VASCULAR DEMENTIA WITHOUT BEHAVIORAL DISTURBANCE SNOMED Code (s): 876206365 Comment: - Supportive care - Continue geodon, excelon, clonazepam and Namenda (11) DVT prophylaxis Code(s): SCW9262 - SNOMED Code(s): 349343476 Comment: - Warfarin per Orthopedics (12) Full code status Code(s): Z78.9 - OTHER SPECIFIED HEALTH STATUS SNOMED Code(s): 370314869 Status and Disposition: Inpatient. Disposition per Orthopedics. Thank you for this consultation, we will continue to follow along.
[2017-06-16 13:52] LABS: Mean Corpuscular HGB Conc 34 g/dl (31-36); Mean Corpuscular Hemoglobin 32 pg (27-31); Mean Corpuscular Volume 94 fL (80-94); Mean Platelet Volume 9 um3 (7.4-10.4); Red Blood Count 3.07 10^6/ul (4.0-5.4); Red Cell Distribution Width 14 % (10.5-15); White Blood Count 12.3 10^3/ul (3.5-10.8)
[2017-06-16] MEDS: RIVASTIGMINE 4.6 MG TRANSDERM SCH (17:23)
--- NOTE | 2017-06-16 19:02 | CONS ---
CC: Dr. Negrita Schulz; [facility] INTRAOPERATIVE CONSULTATION: DATE OF CONSULT/PROCEDURE: 06/14/17 SUMMARY: I was contacted by the orthopedic service to evaluate Mr. Saez, a 66- year-old gentleman, on the operating room table for a left total knee arthroplasty. The patient's hardware was placed and surgeon was planning for closure. It was noted that after the tourniquet was turned down, that there was a significant bleeding within the surgical space. It was thought to be a branch of the popliteal artery and there was concern for it being the popliteal artery. I scrubbed in and assisted Dr. Schulz in evaluating. The course of the vessel appeared quite lateral to be popliteal and the size was approximately 1 mm. The tournique was turned up again. We were able to clamp this off as well as additional lateral portion that was bleeding. We cauterized distally and placed a clip on the proximal portion of the vessel, which appeared to be the lateral geniculate, and after tourniquet was again turned down, it showed that hemostasis was achieved. Case was passed back to Dr. Schulz for completion. [id number]/[facility] #: [id number] MTDD
[2017-06-16] MEDS ORDERED: diPHENhydraMINE PO* 25 MG PO PRN (20:01)
[2017-06-16] MEDS: clonazePAM TAB(*) 0.5 MG PO SCH (21:46)
[2017-06-16] MEDS: Atorvastatin* 10 MG TAB PO SCH (21:47)
[2017-06-17] MEDS: Acetaminophen TAB* 325 MG PO SCH ×5 (02:16→23:34)
[2017-06-17 07:03] LABS: Hematocrit 32 % (42-52); Hemoglobin 10.7 g/dl (14.0-18.0)
--- NOTE | 2017-06-17 08:26 | PN ---
Progress Note - Progress Note Date of Service: 06/17/17 SOAP: Subjective: POD #3 Left TKA. Pt c/o some pain in leg but anxious to get home. Has bee working with PT but delayed due to some post op delirium. Denies CP/SOB, f/c or calf pain Objective: Vitals: Temp Pulse Resp BP Pulse Ox 100.5 F 90 16 139/59 99 06/17/17 03:55 06/17/17 03:55 06/17/17 03:55 06/17/17 03:55 06/17/17 03:55 Gen: A&Ox3, NAD at rest. Somewhat slow with responses to questions LLE: Dressing C/D/I, calf and thigh soft, NT. +f/e at ankles and MTPs, sensation intact, DP 2+ Labs: Laboratory Results - last 24 hr 06/16/17 06/16/17 06/16/17 05:21 08:18 13:02 WBC 12.3 H RBC 3.07 L Hgb Hct MCV 94 MCH 32 H MCHC 34 RDW 14 Plt Count 163 MPV 9 INR (Anticoag Therapy) POC Glucose (mg/dL) 229 H 144 H 06/16/17 06/17/17 06/17/17 17:06 06:23 06:23 WBC RBC Hgb 10.7 L Hct 32 L MCV MCH MCHC RDW Plt Count MPV INR (Anticoag Therapy) 4.01 H POC Glucose (mg/dL) 176 H 06/17/17 07:39 WBC RBC Hgb Hct MCV MCH MCHC RDW Plt Count MPV INR (Anticoag Therapy) POC Glucose (mg/dL) 162 H Assessment: POD #3 Left TKA Plan: Pt doing well today, seems to have less confusion and has not been combative. Continue PT INR 4.01, will hold Coumadin tonight Possible d/c tomorrow if pt continues to improve and does well with PT
[2017-06-17] MEDS: Insulin LISPRO* 1 UNITS UNIT SUBCUT SCH ×3 (08:27→17:26)
[2017-06-17] MEDS: Ziprasidone * 20 MG CAP (generic Geodon) PO SCH ×2 (08:28→17:25)
[2017-06-17] MEDS ORDERED: Scopolomine PATCH Remove* 1 NOTE MISC PATCH OFF ONE (08:51)
[2017-06-17] MEDS: Scopolamine 1.5 mg* PATCH TRANSDERM SCH (09:02)
[2017-06-17] MEDS: Docusate CAP* 100 MG PO SCH ×2 (09:06→21:59)
[2017-06-17] MEDS: Memantine TAB* 5 MG PO SCH ×2 (09:06→21:59)
[2017-06-17] MEDS: Vitamin THERAPEUTIC TAB PO SCH (09:06)
[2017-06-17] MEDS: Diltiazem CD CAP* 240 MG PO SCH (09:07)
--- NOTE | 2017-06-17 10:13 | PN ---
Subjective Date of Service: 06/17/17 Interval History: Patient seen and examined at bedside. Denies fever, chills, shortness of breath , chest discomfort, N/V/D. Family History: Unchanged from Admission Social History: Unchanged from Admission Past Medical History: Unchanged from Admission Objective Active Medications: Acetaminophen (Tylenol Tab*) 975 mg PO Q6HR DELON Atorvastatin Calcium (Lipitor*) 10 mg PO BEDTIME DELON Reason: Protocol Clonazepam (Klonopin Tab(*)) 0.5 mg PO BEDTIME DELON Dextrose (D50w Syringe 50 Ml*) 12.5 gm IV PUSH .FOR FS < 60 - SS PRN Reason: FS < 60 Diltiazem HCl (Cardizem Cd Cap*) 240 mg PO DAILY DELON Diphenhydramine HCl (Benadryl Po*) 25 mg PO Q6H PRN Reason: itching or insomnia Docusate Sodium (Colace Cap*) 100 mg PO BID DELON Insulin Human Lispro (Humalog*) 0 units SUBCUT AC DELON Reason: Protocol Lactulose (Lactulose*) 30 ml PO Q6H PRN Reason: constipation Magnesium Hydroxide (Milk Of Magnesia Liq*) 30 ml PO Q6H PRN Reason: constipation Memantine (Namenda Tab*) 5 mg PO BID DELON Multivitamins (Theragran Tab*) 1 tab PO DAILY DELON Ondansetron HCl (Zofran Inj*) 4 mg IV Q6H PRN Reason: nausea Oxycodone HCl (Roxycodone Tab*) 5 mg PO Q4H PRN Reason: PAIN - SEVERE Pharmacy Profile Note (Coumadin Daily Reminder*) 1 note FOLLOW UP 1700 [facility] Polyethylene Glycol/Electrolytes (Miralax*) 17 gm PO DAILY PRN Reason: Constipation Rivastigmine (Exelon(Nf)) 1 patch TRANSDERM DAILY@1630 DELON Scopolamine (Transderm-Scop 1.5 Mg Patch*) 1 patch TRANSDERM Q72H DELON Ziprasidone (Geodon (Generic) *) 40 mg PO BID WITH MEALS [facility] Vital Signs 06/16/17 06/16/17 06/16/17 10:39 11:52 16:00 Temperature 98.0 F 98.1 F Pulse Rate 114 99 Respiratory 18 18 Rate Blood Pressure 160/80 145/64 (mmHg) O2 Sat by Pulse 96 98 94 Oximetry 06/16/17 06/16/17 06/16/17 19:25 20:00 21:46 Temperature Pulse Rate 100 Respiratory 15 16 18 Rate Blood Pressure 137/66 (mmHg) O2 Sat by Pulse 94 Oximetry 06/16/17 06/16/17 06/16/17 21:47 23:35 23:46 Temperature 100.2 F Pulse Rate 96 Respiratory 118 16 16 Rate Blood Pressure 155/84 (mmHg) O2 Sat by Pulse 98 Oximetry 06/16/17 06/17/17 06/17/17 23:47 03:55 07:33 Temperature 100.5 F 100.4 F Pulse Rate 90 98 Respiratory 16 16 18 Rate Blood Pressure 139/59 155/83 (mmHg) O2 Sat by Pulse 99 99 Oximetry 06/17/17 08:00 Temperature Pulse Rate Respiratory 18 Rate Blood Pressure (mmHg) O2 Sat by Pulse 99 Oximetry Oxygen Devices in Use Now: None Appearance: NAD, sitting up in a chair Ears/Nose/Mouth/Throat: Mucous Membranes Moist Respiratory: Symmetrical Chest Expansion and Respiratory Effort, Clear to Auscultation Cardiovascular: NL Sounds; No Murmurs; No JVD, RRR Abdominal: NL Sounds; No Tenderness; No Distention Extremities: - - 1+ left LE edema Skin: - - Dressing to left knee clean, dry and intact Neurological: NL Muscle Strength and Tone, - - Alert and Oriented to Person and Place, confused Nutrition: Taking PO's Result Diagrams: 06/17/17 06:23 06/15/17 05:04 Microbiology and Other Data: Microbiology 06/14/17 09:00 Anaerobic Culture - Preliminary Wound - Knee Left No Growth Day 1 06/14/17 09:00 Gram Stain - Final Knee Left Wound Culture - Preliminary No Growth Day 1 Assess/Plan/Problems-Billing Assessment: Mr. Saez is a 66 yo male with PMH significant for HTN, DM, HLD, moderate , GERD hx CVA and vascular dementia who presented to the hospital for an elective left total knee replacement on 06/14/[address] Schulz. - Patient Problems (1) Status post total left knee replacement Code(s): Z96.652 - PRESENCE OF LEFT ARTIFICIAL KNEE JOINT SNOMED Code(s): 6954053029118 Comment: - POD #3 - Management per Orthopedics - HH stable, received 2 units of PRBCs 8/3 - Continue pain control, OT/PT, bowel regimen (2) Postoperative delirium Code(s): F05 - DELIRIUM DUE TO KNOWN PHYSIOLOGICAL CONDITION SNOMED Code(s): 3292787 Comment: - Improving - Supportive care - Limit Narcotics - Psychiatry input appreciated (3) Acute blood loss anemia Code(s): D62 - ACUTE POSTHEMORRHAGIC ANEMIA SNOMED Code(s): 691887454 Comment: - Secondary to surgery - HH stable - Received 2 units PRBCs 06/15 (4) Leukocytosis Code(s): D72.829 - ELEVATED WHITE BLOOD CELL COUNT, UNSPECIFIED SNOMED Code(s) : 700539548 Comment: - Improved - suspect secondary to stress response - Febrile this morning (102.4 temporal and 100.0 oral) - UA negative and chest xray WNL (5) HTN (hypertension) Code(s): I10 - ESSENTIAL (PRIMARY) HYPERTENSION SNOMED Code(s): 70978525 Comment: - Normotensive, SBP 130-150s - Continue Cardizem (6) Diabetes Code(s): E11.9 - TYPE 2 DIABETES MELLITUS WITHOUT COMPLICATIONS SNOMED Code(s) : 14573157 Comment: - Glucose 140-170's - Resume metformin - Continue Lispro SS (7) HLD (hyperlipidemia) Code(s): E78.5 - HYPERLIPIDEMIA, UNSPECIFIED SNOMED Code(s): 59494395 Comment: - Continue statin (8) Aortic stenosis Code(s): I35.0 - NONRHEUMATIC AORTIC (VALVE) STENOSIS SNOMED Code(s): 47751238 Comment: - Moderate - Follow with Dr. Yanez outpatient as needed (9) History of CVA (cerebrovascular accident) Code(s): Z86.73 - PRSNL HX OF TIA (TIA), AND CEREB INFRC W/O RESID DEFICITS SNOMED Code(s): 857529425 Comment: - Resume Aspirin when approved by Orthopedics (10) Vascular dementia Code(s): F01.50 - VASCULAR DEMENTIA WITHOUT BEHAVIORAL DISTURBANCE SNOMED Code (s): 062679956 Comment: - Supportive care - Continue geodon, excelon, clonazepam and Namenda (11) DVT prophylaxis Code(s): IVF2409 - SNOMED Code(s): 884296756 Comment: - Warfarin per Orthopedics (INR is currently supratherapeutic) (12) Full code status Code(s): Z78.9 - OTHER SPECIFIED HEALTH STATUS SNOMED Code(s): 379011185 Status and Disposition: Inpatient. Disposition per Orthopedics. Thank you for this consultation, we will continue to follow along.
[2017-06-17] MEDS: RIVASTIGMINE 4.6 MG TRANSDERM SCH (17:25)
[2017-06-17] MEDS: Atorvastatin* 10 MG TAB PO SCH (21:59)
[2017-06-17] MEDS: metFORMIN* 500 MG TAB PO SCH (21:59)
[2017-06-17] MEDS: clonazePAM TAB(*) 0.5 MG PO SCH (22:24)
[2017-06-18] MEDS: Acetaminophen TAB* 325 MG PO SCH (06:00)
[2017-06-18 06:17] LABS: Hematocrit 30 % (42-52); Hemoglobin 10.1 g/dl (14.0-18.0)
[2017-06-18 07:42] VITALS: BP 124/63
--- NOTE | 2017-06-18 08:03 | PN ---
Progress Note - Progress Note Date of Service: 06/18/17 SOAP: Subjective: POD #4 Left TKA. States that he is doing ok, still anxious for d/c home. States that he worked with PT on stairs and felt good. Denies CP/SOB, f/c or calf pain Objective: Vitals: Temp Pulse Resp BP Pulse Ox 98.4 F 83 16 124/63 97 06/18/17 07:15 06/18/17 07:15 06/18/17 07:15 06/18/17 07:15 06/18/17 07:15 Gen: A&Ox3, NAD at rest LLE: Dressing C/D/I. +f/e at ankles and MTPs. Sensation intact. DP 2+ Labs: Laboratory Results - last 24 hr 06/17/17 06/17/17 06/17/17 07:39 12:03 16:46 Hgb Hct INR (Anticoag Therapy) POC Glucose (mg/dL) 162 H 195 H 176 H 06/18/17 06/18/17 05:58 05:58 Hgb 10.1 L Hct 30 L INR (Anticoag Therapy) 3.21 H POC Glucose (mg/dL) Assessment: POD #4 Left TKA Plan: Doing very well, anticipate d/c home today INR 3.21 - hold Coumadin tonight, VNS to draw INR tomorrow F/u with Dr. Schulz 10-14 days post op
--- NOTE | 2017-06-18 08:05 | PN ---
Subjective Date of Service: 06/18/17 Interval History: Patient seen and examined at bedside. Pt states that he is feeling well this morning. Denies fever, chills, shortness of breath, chest discomfort, N/V/D. Pt states that his pain is well controlled. Family History: Unchanged from Admission Social History: Unchanged from Admission Past Medical History: Unchanged from Admission Objective Active Medications: Acetaminophen (Tylenol Tab*) 975 mg PO Q6HR DELON Atorvastatin Calcium (Lipitor*) 10 mg PO BEDTIME DELON Reason: Protocol Clonazepam (Klonopin Tab(*)) 0.5 mg PO BEDTIME DELON Dextrose (D50w Syringe 50 Ml*) 12.5 gm IV PUSH .FOR FS < 60 - SS PRN Reason: FS < 60 Diltiazem HCl (Cardizem Cd Cap*) 240 mg PO DAILY DELON Diphenhydramine HCl (Benadryl Po*) 25 mg PO Q6H PRN Reason: itching or insomnia Docusate Sodium (Colace Cap*) 100 mg PO BID [facility] Insulin Human Lispro (Humalog*) 0 units SUBCUT AC [facility] Reason: Protocol Lactulose (Lactulose*) 30 ml PO Q6H PRN Reason: constipation Magnesium Hydroxide (Milk Of Magnesia Liq*) 30 ml PO Q6H PRN Reason: constipation Memantine (Namenda Tab*) 5 mg PO BID DELON Metformin HCl (Glucophage*) 500 mg PO BID DELON Multivitamins (Theragran Tab*) 1 tab PO DAILY [facility] Ondansetron HCl (Zofran Inj*) 4 mg IV Q6H PRN Reason: nausea Oxycodone HCl (Roxycodone Tab*) 5 mg PO Q4H PRN Reason: PAIN - SEVERE Pharmacy Profile Note (Coumadin Daily Reminder*) 1 note FOLLOW UP 1700 [facility] Polyethylene Glycol/Electrolytes (Miralax*) 17 gm PO DAILY PRN Reason: Constipation Rivastigmine (Exelon(Nf)) 1 patch TRANSDERM DAILY@1630 [facility] Scopolamine (Transderm-Scop 1.5 Mg Patch*) 1 patch TRANSDERM Q72H DELON Ziprasidone (Geodon (Generic) *) 40 mg PO BID WITH MEALS [facility] Vital Signs 06/17/17 06/17/17 06/17/17 11:25 15:36 16:00 Temperature 98.9 F 98.1 F Pulse Rate 74 67 Respiratory 16 18 Rate Blood Pressure 126/59 136/54 (mmHg) O2 Sat by Pulse 99 100 100 Oximetry 06/17/17 06/17/17 06/17/17 19:39 22:30 23:29 Temperature 99.9 F 98.0 F Pulse Rate 74 78 Respiratory 18 16 16 Rate Blood Pressure 114/49 121/53 (mmHg) O2 Sat by Pulse 100 100 Oximetry 06/18/17 06/18/17 04:19 07:15 Temperature 99.5 F 98.4 F Pulse Rate 83 83 Respiratory 16 16 Rate Blood Pressure 134/61 124/63 (mmHg) O2 Sat by Pulse 99 97 Oximetry Oxygen Devices in Use Now: None Appearance: NAD, laying in bed Ears/Nose/Mouth/Throat: Mucous Membranes Moist Respiratory: Symmetrical Chest Expansion and Respiratory Effort, Clear to Auscultation Cardiovascular: NL Sounds; No Murmurs; No JVD, RRR Abdominal: NL Sounds; No Tenderness; No Distention Skin: - - Dressing to left knee clean, dry and intact Neurological: Alert and Oriented x 3, NL Muscle Strength and Tone Nutrition: Taking PO's Result Diagrams: 06/18/17 05:58 06/15/17 05:04 Microbiology and Other Data: Microbiology 06/14/17 09:00 Anaerobic Culture - Preliminary Wound - Knee Left No Growth Day 1 06/14/17 09:00 Gram Stain - Final Knee Left Wound Culture - Preliminary No Growth Day 1 Assess/Plan/Problems-Billing Assessment: Mr. Saez is a 66 yo male with PMH significant for HTN, DM, HLD, moderate , GERD hx CVA and vascular dementia who presented to the hospital for an elective left total knee replacement on 06/14/[address] Schulz. - Patient Problems (1) Status post total left knee replacement Code(s): Z96.652 - PRESENCE OF LEFT ARTIFICIAL KNEE JOINT SNOMED Code(s): 8180592577166 Comment: - POD #4 - Management per Orthopedics - HH stable, received 2 units of PRBCs 06/15 - Continue pain control, OT/PT, bowel regimen (2) Postoperative delirium Code(s): F05 - DELIRIUM DUE TO KNOWN PHYSIOLOGICAL CONDITION SNOMED Code(s): 7424755 Comment: - Resolved - Supportive care - Limit Narcotics - Psychiatry input appreciated (3) Acute blood loss anemia Code(s): D62 - ACUTE POSTHEMORRHAGIC ANEMIA SNOMED Code(s): 835166103 Comment: - Secondary to surgery - HH stable - Received 2 units PRBCs 06/15 (4) Leukocytosis Code(s): D72.829 - ELEVATED WHITE BLOOD CELL COUNT, UNSPECIFIED SNOMED Code(s) : 950149643 Comment: - Improved - suspect secondary to stress response - Now afebrile. Febrile 06/16 (102.4 temporal and 100.0 oral) - UA negative and chest xray WNL (5) HTN (hypertension) Code(s): I10 - ESSENTIAL (PRIMARY) HYPERTENSION SNOMED Code(s): 76282645 Comment: - Normotensive, SBP 110-130s - Continue Cardizem (6) Diabetes Code(s): E11.9 - TYPE 2 DIABETES MELLITUS WITHOUT COMPLICATIONS SNOMED Code(s) : 98595005 Comment: - Glucose 160-170's - Continue metformin (7) HLD (hyperlipidemia) Code(s): E78.5 - HYPERLIPIDEMIA, UNSPECIFIED SNOMED Code(s): 81498576 Comment: - Continue statin (8) Aortic stenosis Code(s): I35.0 - NONRHEUMATIC AORTIC (VALVE) STENOSIS SNOMED Code(s): 67347752 Comment: - Moderate - Follow with Dr. Yanez outpatient as needed (9) History of CVA (cerebrovascular accident) Code(s): Z86.73 - PRSNL HX OF TIA (TIA), AND CEREB INFRC W/O RESID DEFICITS SNOMED Code(s): 280075980 Comment: - Resume Aspirin when approved by Orthopedics (10) Vascular dementia Code(s): F01.50 - VASCULAR DEMENTIA WITHOUT BEHAVIORAL DISTURBANCE SNOMED Code (s): 726998003 Comment: - Supportive care - Continue geodon, excelon, clonazepam and Namenda (11) DVT prophylaxis Code(s): WRL9028 - SNOMED Code(s): 649991219 Comment: - Warfarin per Orthopedics (INR is currently supratherapeutic) (12) Full code status Code(s): Z78.9 - OTHER SPECIFIED HEALTH STATUS SNOMED Code(s): 286965438 Status and Disposition: Inpatient. Disposition per Orthopedics. Thank you for this consultation, we will sign off at this time.
[2017-06-18] MEDS: Insulin LISPRO* 1 UNITS UNIT SUBCUT SCH (08:19)
[2017-06-18] MEDS: Ziprasidone * 20 MG CAP (generic Geodon) PO SCH (08:19)
[2017-06-18] MEDS: metFORMIN* 500 MG TAB PO SCH (09:45)
[2017-06-18] MEDS: Magnesium Hydroxide LIQ* 30 ML UDC PO PRN (09:45)
[2017-06-18] MEDS: Vitamin THERAPEUTIC TAB PO SCH (09:45)
[2017-06-18] MEDS: Docusate CAP* 100 MG PO SCH (09:45)
[2017-06-18] MEDS: Diltiazem CD CAP* 240 MG PO SCH (09:45)
[2017-06-18] MEDS: Memantine TAB* 5 MG PO SCH (09:45)
--- NOTE | 2017-06-18 12:53 | DS ---
DISCHARGE SUMMARY: DATE OF ADMISSION: 06/14/17 DATE OF DISCHARGE: 06/18/17 PROVIDER: Negrita Schulz MD. * (DICTATED BY HOA LUX) ADMITTING DIAGNOSIS: Endstage osteoarthritis of the left knee. DISCHARGE DIAGNOSIS: Endstage osteoarthritis of the left knee, status post left total knee arthroplasty. SECONDARY DIAGNOSES: 1. Hypertension. 2. Diabetes. 3. High cholesterol. 4. Aortic stenosis. 5. Heart murmur. 6. Gastroesophageal reflux disease. 7. Cerebrovascular accident. 8. Vascular dementia. HISTORY OF PRESENT ILLNESS: Mr. Saez is a 66-year-old gentleman who has had ongoing complaints of left knee pain secondary to advanced osteoarthritis. He had failed conservative management and elected to proceed with a left total knee arthroplasty. HOSPITAL COURSE: On 06/14/17, the patient was admitted to [facility] and underwent a successful left total knee arthroplasty. The case was complicated by some intraoperative bleeding, which was controlled prior to the close of the case. He then recovered briefly in the postanesthesia care unit and was transferred to the short stay surgical unit in stable condition. On postop day 1, the patient was doing pretty well; however, he did experience some postoperative delirium and by the evening of postop day 1 became very agitated requiring additional doses of Geodon. It was found that the narcotics were causing some behavioral changes and those were limited by the hospitalist and he seemed to do much better since that time. He has had some confusion throughout. His H and H on post day 1 was 8.3 and 25. However, the patient seemed asymptomatic. He was able to do a small amount with physical therapy; however, this again was limited by his delirium. He was given a transfusion of 2 units of packed red blood cells and his H and H responded well. He was on 9.7 and 29 after the transfusion. Postop day 3, the patient was much more alert and able to answer questions more appropriately. He was able to participate better with physical therapy. Pain was controlled with oral Tylenol and his narcotics again were limited. His H and H was 10.7 and 32. INR increased to 4.01 and Coumadin was held. Postop day 4, the patient was found stable for discharge home as he was able to do stairs with physical therapy. H and H remained stable at 10.1 and 30. INR decreased slightly to 3.2. The patient is understanding of his discharge instructions and they will again be discussed with his for further clarification. DISCHARGE CONDITION: Stable. DISCHARGE MEDICATIONS: The patient has a prescription for Percocet 5/325 one to two tablets p.o. q.4 to 6 hours p.r.n. pain; however, his is understanding to limit the use as much as possible as long as the pain is controlled. He will use Tylenol 650 mg p.o. q. 4 hours p.r.n. pain. He also has a prescription for Coumadin, which will be held on 06/18/17. Visiting nurse will redraw the INR on 06/19/17. Colace 100 mg p.o. b.i.d. p.r.n. constipation. He will resume his home medications of Cardizem 240 mg p.o. daily, clonazepam 0.5 mg p.o. q.h.s., aspirin 81 mg p.o. daily, metformin 500 mg p.o. b.i.d., Namenda 5 mg p.o. b.i.d., Exelon patch 4.6 mg transdermal daily, Senna-Lax 2 tabs p.o. q.h.s. p.r.n., rosuvastatin 5 mg p.o. q.h.s., Geodon 40 mg p.o. daily. DISCHARGE INSTRUCTIONS: The patient will be weightbearing as tolerated with the use of rolling walker. He will have home visiting nurse service for INR check and wound care. He will also have home physical therapy. The patient is understanding to call the office with any questions, concerns, calf pain, swelling, fever greater than 101.5 or redness, and pain around the knee. He is understanding to go directly to the ER with any chest pain or shortness of breath. FOLLOW UP: He will follow up in the office with Dr. Schulz 10 to 14 days postoperatively. All of his questions were answered to his full satisfaction. HOA LUX [id number]/[facility] #: [id number] KHLOE
== END 2017-06-18 10:45 | disposition home health service (06) | DRG 470 ==
LOC: AA 06:00 → SSU 11:12
PROVIDERS: ADMIT Orthopaedic Surgery Adult Reconstructive Orthopaedic Surgery; ATTEND Orthopaedic Surgery Adult Reconstructive Orthopaedic Surgery
PROC: 0SRD0J9 Replacement of Left Knee Joint with Synthetic Substitute, Cemented, Open Approach (ICD-10-PCS; 2017-06-14)
PROC: 0Y3G0ZZ Control Bleeding in Left Knee Region, Open Approach (ICD-10-PCS; 2017-06-14)
PROC: 30233N1 Transfusion of Nonautologous Red Blood Cells into Peripheral Vein, Percutaneous Approach (ICD-10-PCS; principal; 2017-06-15)
DX: M17.32 Unilateral post-traumatic osteoarthritis, left knee (principal); F05 Delirium due to known physiological condition; D62 Acute posthemorrhagic anemia; I10 Essential (primary) hypertension; E11.9 Type 2 diabetes mellitus without complications; D72.829 Elevated white blood cell count, unspecified; I97.42 Intraoperative hemorrhage and hematoma of a circulatory system organ or structure complicating other procedure; E78.00 Pure hypercholesterolemia, unspecified; I35.0 Nonrheumatic aortic (valve) stenosis; K21.9 Gastro-esophageal reflux disease without esophagitis; F01.50 Vascular dementia, unspecified severity, without behavioral disturbance, psychotic disturbance, mood disturbance, and anxiety; R45.1 Restlessness and agitation; E78.5 Hyperlipidemia, unspecified; R50.9 Fever, unspecified; M25.762 Osteophyte, left knee; Y83.8 Other surgical procedures as the cause of abnormal reaction of the patient, or of later complication, without mention of misadventure at the time of the procedure; Y92.234 Operating room of hospital as the place of occurrence of the external cause; R01.1 Cardiac murmur, unspecified; Z79.82 Long term (current) use of aspirin; Z86.73 Personal history of transient ischemic attack (TIA), and cerebral infarction without residual deficits; Z98.42 Cataract extraction status, left eye; Z98.41 Cataract extraction status, right eye; Z79.84 Long term (current) use of oral hypoglycemic drugs
CPT/HCPCS: 36415; 70450; 71020; 80048; 81003; 85014; 85018; 85025; 85027; 85610; 86850; 86900; 86901; 86922; 87070; 87073; 87205; 88305; 88311; 93880; A9270-GY; C1776; J0690; J1100; J2250; J2270; J2405; J2704; J2795; J3486; P9040

== ENCOUNTER 2019-06-14 12:22 | Emergency (ER) | payer MEDICARE, OTHER ==
--- NOTE | 2019-06-14 12:41 | ED ---
Headache - HPI Summary HPI Summary: A 68 y/o male presents to [facility] with a chief complaint of a headache yesterday. He was sent from Dr. Sarabia's office. He denies any current CP or dizziness, but he was dizzy/lightheaded yesterday. His legs have reportedly been wobbly. The patient had pain yesterday in his occiput between his two ears, and was having difficulty hearing. When she called Dr. Sarabia's office she recommended coming into the ED. The patient had a CVA 7 years ago. He had not weakness or any motor issues but had behavioral symptoms. The CVA caused vascular dementia. The patient's headache started yesterday afternoon and was gradual in intensity. He says that both sides of his head like a "band between his ears" would hurt and felt numb. He says that his headache got better an hour later. He reported feeling "wobbly" when walking his dog later on that evening. This has resolved. He denied any blurred vision or being photophobic when his headache occurred. He denies any numbness or weakness in his extremities. The patient is adopted but his sister had early onset Alzheimers. He has not had any recent MRI. He has known right carotid artery stenosis. - History Of Current Complaint Chief Complaint: EDHeadache Stated Complaint: SEVERE HEADACHE PER NURSE Time Seen by Provider: 06/14/19 12:32 Hx Obtained From: Patient, Family/Auto Glass Installer Onset/Duration: Sudden Onset, Started hours ago, Resolved Initially Headache Was: Moderate Currently Pain Is: Current Pain Scale(0-10)= - 0 Timing: Intermittent, Lasting: - 1 episode of a headache for an hour Character: Unable To Describe Location of Headache: Other: - band in back of head from ear to ear Aggravating Factor: Nothing Allevating Factors: Nothing Associated Signs And Symptoms: Dizziness, Neck Pain, Other (Noted In Comments) - negative: blurred vision, photophobic - Allergies/Home Medications Allergies/Adverse Reactions: Allergies Allergy/AdvReac Type Severity Reaction Status Date / Time morphine Allergy Agitation Verified 06/14/19 14:21 omeprazole Allergy Unknown Verified 06/14/19 12:49 Reaction Details Home Medications: Home Medications Aspirin [Aspirin EC] 81 mg PO DAILY 06/14/19 [History Confirmed 06/14/19] Divalproex Sodium [Depakote Sprinkle] 250 mg PO BID 06/14/19 [History Confirmed 06/14/19] Docusate CAP* [Colace Cap*] 100 mg PO DAILY PRN 06/14/19 [History Confirmed 01/01] Memantine TAB* [Namenda TAB*] 10 mg PO BID 06/14/19 [History Confirmed 06/14/19] Rosuvastatin Calcium 5 mg PO BEDTIME 06/14/19 [History Confirmed 06/14/19] Ziprasidone HCl [Geodon] 60 mg PO QPM 06/14/19 [History Confirmed 06/14/19] clonazePAM [Clonazepam] 1 mg PO BEDTIME 06/14/19 [History Confirmed 06/14/19] PMH/Surg Hx/FS Hx/Imm Hx Endocrine/Hematology History: Reports: Hx Diabetes - TYPE 2 ON MEDS PT. [place] Cardiovascular History: Reports: Hx Hypertension Denies: Hx Pacemaker/ICD Comment Only: Other Cardiovascular Problems/Disorders - CONGENTIAL HEART MURMUR GI History: Reports: Other GI Disorders - CHRONIC CONSTIPATION Musculoskeletal History: Reports: Hx Arthritis - OSTEO LEFT KNEE Sensory History: Reports: Hx Cataracts - LEFT EYE, Hx Contacts or Glasses - READING, Hx Hearing Aid - BILAT Opthamlomology History: Reports: Hx Cataracts - LEFT EYE, Hx Contacts or Glasses - READING Neurological History: Reports: Other Neuro Impairments/Disorders - VASCULAR DEMENTIA Psychiatric History: Reports: Hx Anxiety, Hx Depression, Other Psychiatric Issues/Disorders - VASCULAR DEMENTIA Denies: Hx Panic Disorder - Cancer History Cancer Type, Location and Year: PRECANCEROUS SKIN LESIONS REMOVED - Surgical History Surgery Procedure, Year, and Place: DISLOCATION OF LEFT KNEE OPEN PROCEDURE [address] DR GRIFFITH. 3 KNEE SCOPINGS OVER MANY YEARS [place] [facility] [place]ONSILLECTOM[place] AGE 40YR [facility] [place] Anesthesia Reactions: No Infectious Disease History: No Infectious Disease History: Denies: Traveled Outside the [place] in Last 30 Days - Family History Known Family History: Positive: Other - Alzheimers - sister, Pt is adopted - Social History Alcohol Use: Rare Alcohol Amount: WINE Substance Use Type: Reports: None Smoking Status (MU): Never Smoked Tobacco Review of Systems Negative: Fever Negative: Photophobia, Blurred Vision Positive: Other - positive: Pt had difficulty hearing during headache Negative: Chest Pain Neurological: Other - Pt had some dizziness DISABILITY BENEFITS SPECIALIST, but no current dizziness, his legs have also "been wobbly". Positive: Headache. Negative: Weakness, Numbness All Other Systems Reviewed And Are Negative: Yes Physical Exam - Summary Physical Exam Summary: Constitutional: elderly male NAD Skin: Warm, Dry HENT: Normocephalic; Atraumatic Eyes: Conjunctiva normal Neck: Musculoskeletal ROM normal neck. (-) JVD, (-) Nuchal rigidity, no c spine TTP Cardio: Rhythm regular, rate normal, Heart sounds normal; Intact distal pulses; Radial pulses are 2+ and symmetric. (-) Murmur Pulmonary/Chest wall: Effort normal. (-) Respiratory distress, (-) Wheezes, (-) Rales Abd: Soft. (-) Tenderness, (-) Distension, (-) Guarding, (-) Rebound Musculoskeletal: (-) Edema Lymph: (-) Cervical adenopathy Neuro: Alert, PERRL, Oriented x3, Strength normal, Cranial nerves II-XII are grossly intact. SILT, Strength 5/5 BUE and BLE, (-) Dysmetria, (-) Nystagmus, ambulates w steady gait. Psych: Mood and affect Normal Triage Information Reviewed: Yes Vital Signs On Initial Exam: Initial Vitals Temp Pulse Resp BP Pulse Ox 98.9 F 69 18 171/94 97 06/14/19 12:23 06/14/19 12:23 06/14/19 12:23 06/14/19 12:23 06/14/19 12:23 Vital Signs Reviewed: Yes - [place] Coma Scale Best Eye Response: 4 - Spontaneous Best Motor Response: 6 - Obeys Commands Best Verbal Response: 5 - Oriented Coma Scale Total: 15 Diagnostics - Vital Signs Vital Signs Temp Pulse Resp BP Pulse Ox 06/14/19 12:23 98.9 F 69 18 171/94 97 - Laboratory Result Diagrams: 06/14/19 13:12 06/14/19 13:12 Lab Statement: Any lab studies that have been ordered have been reviewed, and results considered in the medical decision making process. - CT Brain CT Interpretation Completed By: Radiologist Summary of CT Findings: NO ACUTE INTRACRANIAL PATHOLOGY. Remote right frontal infarct. ED physician has reviewed this imaging report. Brain MRI CT Interpretation Completed By: Radiologist Summary of CT Findings: 1. No acute intracranial abnormality. 2. Old right KEANU territory infarct. 3. Mild chronic small vessel ischemic disease is likely. 4. Mild cerebral volume loss. ED physician has reviewed this imaging report. Head MRA CT Interpretation Completed By: Radiologist Summary of CT Findings: MODERATE SHORT SEGMENT STENOSIS OF THE DISTAL RIGHT VERTEBRAL ARTERY. ELSEWHERE, THERE IS. NO ANEURYSM, VASCULAR MALFORMATION, OCCLUSION, OR STENOSIS OF THE VISUALIZED INTRACRANIAL. CIRCULATION. ED physician has reviewed this imaging report. - EKG 12:57 Cardiac Rate: NL - 62 bpm EKG Rhythm: Sinus Rhythm Summary of EKG Findings: EKG at 12:57 showed NSR at 62 bpm. No ischemic changes. Re-Evaluation - Re-Evaluation First Eval Re-Evaluation Time: 13:50 Change: Unchanged Comment: Updated Pt on results. Plan for discharge to home. Also updated his neurologist. Patient to return for worsening neuro symptoms. Patient ambulated in the department with a steady gait. Headache Course/Dx - Course Course Of Treatment: 68-year-old male with a history of a prior CVA and vascular dementia presents with episode of occipital headache as well as ataxia now resolved. -Check basic labs, check head CT given neuro symptoms, will discuss with his neurologist regarding TIA workup. - Diagnoses Provider Diagnoses: Headache, Gait abnormality - Physician Notifications Discussed Care Of Patient With: Vee Sarabia Time Discussed With Above Provider: 14:23 Instructed by Provider To: Other - Recommends TIA workup with MRI/MRI Discharge - Sign-Out/Discharge Documenting (check all that apply): Patient Departure Patient Received Moderate/Deep Sedation with Procedure: No - Discharge Plan Condition: Stable Disposition: HOME Referrals: Erasto Baxter MD [Primary Care Provider] - Additional Instructions: You were seen in the emergency department for a headache and dizziness. Your MRI showed some stenosis or narrowing of one of you arteries. If any studies were not completed at the time of discharge you will be called with the relevant results. Please follow up with your primary care doctor in next 2-3 days and return to emergency department for new numbness, tingling, weakness or worsening or concerning symptoms. - Billing Disposition and Condition Condition: STABLE Disposition: Home - Attestation Statements Document Initiated by Marioibrojelio: Yes Documenting Scribe: Minh Mccullough Provider For Whom Ishan is Documenting (Include Credential): Jerad Sim MD Scribe Attestation: Minh Collier scribed for Jerad Sim MD on 06/14/19 at 1627. Scribe Documentation Reviewed: Yes Provider Attestation: The documentation as recorded by the scribe, Minh Mccullough accurately reflects the service I personally performed and the decisions made by me, Jerad Sim MD Status of Scribe Document: Viewed Consult Consult: At 14:[address] Hartman, neuro, who agrees with plan. Will update pending any changes. At 16:[address] Hartman, who recommends 75 mg Plavix and discharge. At 16:[address] Sarabia, who would like to hold on the Plavix.
[2019-06-14 13:26] LABS: ABS Basophils 0.1 10^3/ul (0-0.2); ABS Eosinophils 0.3 10^3/ul (0-0.6); ABS Lymphocytes 1.7 10^3/ul (1.0-4.8); ABS Monocytes 0.5 10^3/ul (0-0.8); ABS Neutrophils 3.2 10^3/ul (1.5-7.7); Eosinophil % 5.5 %; Hematocrit 38 % (42-52); Hemoglobin 13.2 g/dL (14.0-18.0); Mean Corpuscular HGB Conc 35 g/dL (31-36); Mean Corpuscular Hemoglobin 33 pg (27-31); Mean Corpuscular Volume 93 fL (80-94); Mean Platelet Volume 8.8 fL (7.4-10.4); Platelet Count 226 10^3/uL (150-450); Red Blood Count 4.08 10^6 /uL (4.18-5.48); Red Cell Distribution Width 14 % (10-15); White Blood Count 5.8 10^3/uL (3.5-10.8)
[2019-06-14 13:32] LABS: INR 1.14 (0.82-1.09)
[2019-06-14 13:47] LABS: Albumin 4.4 g/dL (3.2-5.2); Albumin/Globulin Ratio 1.8 (1-3); BUN/Creatinine Ratio 16.3 (8-20); Calcium 10.3 mg/dL (8.6-10.3); EGFR African American 98.4 (>60); EGFR Non-African American 81.3 (>60); Globulin 2.4 g/dL (2-4); Potassium 4.8 mmol/L (3.5-5.0); Total Bilirubin 0.4 mg/dL (0.2-1.0); Total Protein 6.8 g/dL (6.4-8.9)
[2019-06-14] MEDS ORDERED: LORazepam INJ* 2 MG/ML 1 ML VIAL IV PUSH ONE (14:32)
[2019-06-14] MEDS ORDERED: Lorazepam PYXIS KEY PRN (14:32)
[2019-06-14] MEDS ORDERED: LORazepam TAB(*) 1 MG PO ONE (14:46)
[2019-06-14 16:29] VITALS: BP 168/92
== END 2019-06-14 16:35 | disposition home or self-care (01) ==
LOC: ED 12:22
DX: R51 Headache (principal); R26.9 Unspecified abnormalities of gait and mobility; Z88.5 Allergy status to narcotic agent; Z88.8 Allergy status to other drugs, medicaments and biological substances; Z79.82 Long term (current) use of aspirin; Z79.899 Other long term (current) drug therapy; E11.9 Type 2 diabetes mellitus without complications; I10 Essential (primary) hypertension; K59.09 Other constipation; I69.919 Unspecified symptoms and signs involving cognitive functions following unspecified cerebrovascular disease; F01.50 Vascular dementia, unspecified severity, without behavioral disturbance, psychotic disturbance, mood disturbance, and anxiety; F41.9 Anxiety disorder, unspecified; F32.9 Major depressive disorder, single episode, unspecified; I67.82 Cerebral ischemia; I65.01 Occlusion and stenosis of right vertebral artery
CPT/HCPCS: 36415; 70450; 70544; 70551; 80053; 85025; 85610; 93005; 96374; 99283; A9270-GY

== ENCOUNTER 2019-07-24 07:01 | Day surgery (SDC) | payer MEDICARE, OTHER ==
[~2019-07-24 07:01] MED LIST changes: -Buffered Lidocaine 0.9% SYRIN* 5 ML/SYR SYRINGE INTRADERM ONE; +Buffered Lidocaine 1% SYRIN* 1 ML/SYRINGE INTRADERM ONE; -Dexamethasone IV* 4 MG/ML 1 ML (4 MG) IV SLOW PU ONE; -Famotidine IV* 10 MG/ML 2 ML (20 mg) IV ONE
[2019-07-24] MEDS ORDERED: Midazolam* 1 MG/ML 2 ML VIAL (2 MG) ONE (08:52)
--- NOTE | 2019-07-24 09:45 | OP ---
OPERATIVE NOTE: DATE OF OPERATION: 07/24/19 DATE OF : 46 SURGEON: Gal Conroy M.D. PREOPERATIVE DIAGNOSIS: Cataract, right. POSTOPERATIVE DIAGNOSIS: Cataract, right. OPERATIVE PROCEDURE: Extracapsular cataract extraction with IOL, intraocular lens implant right eye. PROCEDURE: The patient was brought to the operating room after being given 1/2% Alcaine with epineph rine drops in the preoperative area. The eye was prepped and draped in the usual sterile fashion. S terile drape and eyelid speculum were placed. Again, topical 1/2% Alcaine with epinephrine was given . A paracentesis incision was made at the 9 o'clock position with the No.75 blade. Clear cornea inc ision 2.2 x 2.2-mm was created at the 12 o'clock position starting at the anterior limbus using the 2 .2-mm keratome. The anterior chamber was irrigated with 0.4 mL of 1% non-preservative intracameral l idocaine and filled with DisCoVisc. A capsulorrhexis was completed using the cystotome and the Utrat a forceps. Hydrodissection was performed with balanced salt solution. The lens nucleus was removed w ith the Phacoemulsification handpiece without incident. Cortex was removed with the irrigation-aspir ation handpiece. The capsular bag was re-inflated using DisCoVisc and an SN60WF 17.5 implant was ins erted with the shooter. All measurements confirmed with ORA. The irrigation-aspiration handpiece wa s used to remove all residual DisCoVisc. The eye was refilled with balanced salt solution and the wo und checked and found to be watertight. Topical Maxitrol drops were given. [id number]/[facility] #: [id number]
[2019-07-24 09:49] VITALS: BP 160/73
[2019-07-24] MEDS ORDERED: Cyclopentolate 1% OPTH.SOL* 2 ML BTL ONE (12:24)
[2019-07-24] MEDS ORDERED: Phenylephrine OPHTH SOL 2.5%* 2 ML ONE (12:24)
[2019-07-24] MEDS ORDERED: Neomycin/Polymy/Dex OPTH.SUSP* MAXITROL 0.1% 5 ML ONE (12:24)
[2019-07-24] MEDS ORDERED: Proparacaine 0.5% OPHTH.SOL* 15 ML BTL ONE (12:24)
[2019-07-24] MEDS ORDERED: Povidone Iodine 5% OPTH* 30 ML BTL ONE (12:24)
[2019-07-24] MEDS ORDERED: Ketorolac 0.5% OPHTH (NF) 0.5 % 5 ML BTL ONE (12:24)
[2019-07-24] MEDS ORDERED: acetaZOLAMIDE TAB* 250 MG ONE (12:24)
[2019-07-24] MEDS ORDERED: Lidocaine 2% w/ EPI 1:200,000* 20 ML SDV VIAL ONE (12:24)
[2019-07-24] MEDS ORDERED: Lidocaine 1% MPF ** 5 ML VIAL ONE (12:24)
== END 2019-07-24 09:36 | disposition home or self-care (01) ==
LOC: OREAST 07:01
PROVIDERS: ATTEND Specialist
DX: H25.11 Age-related nuclear cataract, right eye (principal); E11.9 Type 2 diabetes mellitus without complications; Z79.84 Long term (current) use of oral hypoglycemic drugs; H10.45 Other chronic allergic conjunctivitis; I10 Essential (primary) hypertension; I35.8 Other nonrheumatic aortic valve disorders; Z86.73 Personal history of transient ischemic attack (TIA), and cerebral infarction without residual deficits; E78.5 Hyperlipidemia, unspecified
CPT/HCPCS: A9270-GY; J2250; V2632

== ENCOUNTER 2019-08-27 11:00 | Emergency (ER) | payer MEDICARE, OTHER ==
--- OUTSIDE RECORDS SUMMARY | 2019-08-27 11:07 | XMS REPORT | Continuity of Care Document ---
:1950 External Reference #:[id number] Author Name Yesenia Licea O.D. Address [address] [place] [address] Care Team Providers Name Role Phone Erasto Baxter M.D. - Internal Care Team Information Certified Phlebotomist Medicine Vee Sarabia M.D. - Neurology Care Team Information Certified Phlebotomist Problems Active Problems Provider Date Type 2 diabetes mellitus Onset: Hypertension Onset: Hypercholesterolemia Onset: H/O: Stroke in last year Onset: Vascular dementia Onset: Chronic allergic conjunctivitis Yesenia Licea O.D. Onset: 05/25/2017 Nuclear senile cataract Yesenia Licea O.D. Onset: 05/25/2017 Presence of intraocular lens Yesenia Licea O.D. Onset: 05/25/2017 Vitreous degeneration Yesenia Licea O.D. Onset: 05/25/2017 Social History Type Date Description Comments Sex Unknown ETOH Use Rarely consumes alcohol Tobacco Use Start: Unknown Patient has never smoked Recreational Drug Use Denies Drug Use Smoking Status Reviewed: 08/13/19 Patient has never smoked Allergies, Adverse Reactions, Alerts Active Allergies Reaction Severity Comments Date Morphine 04/11/2018 Seasonal 06/26/2019 Inactive Allergies NKDA 05/25/2017 Medications Active Medications SIG Qnty Indications Ordering Provider Date Artificial Tears as needed Gal Conroy, 07/08/2019 1-0.3% M.D. Solution Olopatadine HCL instill 1 drop 15units H10.45 Yesenia Licea, 04/11/2018 0.1% into both eyes O.D. Solution as needed Rivastigmine Unknown Transdermal System 4.6mg/24HR Patches 24HR Diltiazem HCL ER Unknown Coated Beads 240mg Caps ER 24HR Docusate Sodium Unknown 100mg Capsules Metformin HCL 2 x day Unknown 500mg Tablets Geodon 60 mg at dinner Unknown 40mg Capsules Depakote sprinkles, 2 x Unknown 125mg Tablets day Clonazepam Unknown 1mg Tablets Aleve Unknown 220mg Tablets Namenda 2 x day Unknown 10mg Tablets Glucophage Unknown 500mg Tablets Aspir-Low Unknown 81mg Tablets Rosuvastatin Calcium Unknown 5mg Tablets History Medications Ciprofloxacin HCL instill one drop 5ml Gal Conroy, 07/09/2019 - 0.3% in the right eye M.D. 07/25/2019 Solution three times a day, start the day before surgery Ketorolac Tromethamine use one drop in 10ml Gal Conroy, 07/09/2019 - 0.5% the right eye M.D. 08/01/2019 Solution three times a day, start the day before surgery Prednisolone Acetate 1 drops right eye 10ml Gal Conroy, 07/09/2019 - 1% three times a day. M.D. 08/01/2019 Suspension taper as directed Immunizations Description No Information Available Vital Signs Description No Information Available Results Test Date Facility Test Result H/L Range Note Laboratory test 07/24/2019 AT [facility] 110 mg/dL High 70-[address] [place], [place] [id number] [phone] - Filler Shaker: [id number] Procedures Date Code Description Status 07/24/2019 76594 Extracapsular Cataract Extraction W/Intraocular Lens Completed 07/09/2019 37406 Ophthalmic Biometry Completed 07/09/2019 37205 Scanning Computerized Opthalmic Diagnostic Posterior Seg Completed Retina 07/09/2019 11899 Computerized Corneal Topography Completed 07/09/2019 70149 Est Patient Intermediate Exam Completed 06/26/2019 48660 Determination Of Refractive State Completed 06/26/2019 03969 Est Patient Comprehensive Exam Completed Medical Devices Description No Information Available Encounters Description No Information Available Assessments Date Code Description Provider 08/13/2019 Z96.1 Presence of intraocular lens Yesenia Licea O.D. 07/25/2019 Z96.1 Presence of intraocular lens Gal Conroy M.D. 07/25/2019 E11.9 Type 2 diabetes mellitus without Gal Conroy M.D. complications 07/24/2019 H25.11 Age-related nuclear cataract, right eye Gal Conroy M.D. 07/09/2019 H25.11 Age-related nuclear cataract, right eye Gal Conroy M.D. 07/09/2019 E11.9 Type 2 diabetes mellitus without Gal Conroy M.D. complications 07/09/2019 H10.45 Other chronic allergic conjunctivitis Gal Conroy M.D. 07/09/2019 Z96.1 Presence of intraocular lens Gal Conroy M.D. 06/26/2019 E11.9 Type 2 diabetes mellitus without Yesenia Licea O.D. complications 06/26/2019 H10.45 Other chronic allergic conjunctivitis Yesenia Licea O.D. 06/26/2019 Z96.1 Presence of intraocular lens Yesenia Licea O.D. 06/26/2019 H25.11 Age-related nuclear cataract, right eye Yesenia Licea O.D. Plan of Treatment Future Appointment(s):08/12/2020 11:00 am - Yesenia Licea O.D. at Gal Conroy [facility], [facility] - Yesenia Licea O.D.Z96.1 Presence of intraocular lensComments:Your lens implant looks stable in your right eye at this time. You should be done, or almost done with your drops at this time according to your surgical calendar. I have given you a prescription forglasses. If you have any questions, please feel free to call our office at .Follow up:1 year You can expect to have your eyes dilated at your next visit. If Dr. Licea orders any additional testing, it may require extra time. We recommend that you bring sunglasses, as dilation drops often make you light sensitive until they wear off. We always recommend you bring someone to drive you home if you are uncomfortable driving with your eyes dilated. If you have any questions before your next visit, feel free to call our office at . Functional Status Description No Information Available Mental Status Description No Information Available Referrals Description No Information Available
--- OUTSIDE RECORDS SUMMARY | 2019-08-27 11:07 | XMS REPORT | Continuity of Care Document ---
:1950 External Reference #:[id number] Author Name Vee Sarabia M.D. (transmitted by agent of provider Colleen Tong) Address [address] [facility], [place] [address] Care Team Providers Name Role Phone Erasto Baxter MD - Family Medicine Care Team Information Flatwork Folder Problems Active Problems Provider Date Headache Negrita Schulz M.D. Onset: 05/18/2015 Heart murmur Negrita Schulz M.D. Onset: 05/18/2015 H/O: hypertension Negrita Schulz M.D. Onset: 05/18/2015 Heartburn Negrita Schulz M.D. Onset: 05/18/2015 Depressive disorder Negrita Schulz M.D. Onset: 05/18/2015 Anxiety Negrita Schulz M.D. Onset: 05/18/2015 Diabetes mellitus Negrita Schulz M.D. Onset: 05/18/2015 Ischemic stroke Vee Sarabia M.D. Onset: 09/09/2015 Note: small left frontal ischemic stroke noted on 08/2015 MRI with evidence old right frontal encephalomalacia Localized, secondary osteoarthritis Negrita Schulz M.D. Onset: 05/08/2017 Arthroplasty of knee Negrita Schulz M.D. Onset: 07/21/2017 Vascular dementia Vee Sarabia M.D. Onset: 09/20/2017 Note: MoCA: 09/27: ; 09/29: Social History Type Date Description Comments Sex Unknown Tobacco Use Start: Unknown Never Smoked Cigarettes ETOH Use Occasionally consumes Beer once or twice a alcohol week Tobacco Use Start: Unknown Patient has never smoked Recreational Drug Use Denies Drug Use Smoking Status Reviewed: 08/09/19 Patient has never smoked Enjoy Exercising Enjoys exercising play golf, walks Exercise Type/Frequency Does not exercise Exercise Type/Frequency cardio work out weight resistance and light weights 2 x week Allergies, Adverse Reactions, Alerts Active Allergies Reaction Severity Comments Date Omeprazole 05/08/2017 Morphine Out of it feeling 04/19/2018 Inactive Allergies NKDA 07/16/2003 Medications Active Medications SIG Qnty Indications Ordering Provider Date Aspirin Enteric 1 tablet po qd 30tabs Unknown 07/15/2003 Coated (held; on 81mg Tablets coumadin) Metformin HCL 1 by mouth Unknown 500mg twice a day Tablets Am/PM Aleve 1 tablet po as Unknown 220mg Tablets needed for knee pain Rivastigmine take 1 patch po Unknown Transdermal System daily ( started Dec 2016) 4.6mg/24HR Patches 24HR Clonazepam 1 tablet by 30tabs Vee Sarabia M.D. 1mg Tablets mouth every bedtime Depakote Sprinkles take 2 by mouth Unknown twice a day 125mg CSDR Docusate Sodium 1 by mouth a Unknown 100mg day as needed Capsules Namenda take one tablet 60tabs Madhu Singleton, 10mg Tablets by mouth twice M.D. a day Rosuvastatin Calcium take 1 by mouth Unknown each day 5mg Tablets Ziprasidone HCL 1 tab at dinner Unknown 60mg Capsules Losartan Potassium 1 by mouth Unknown 25mg every day Tablets Medications Administered in Office Medication SIG Qnty Indications Ordering Provider Date Inj, Regadenoson, 0.1 MG Suhail Yanez, DO [facility] 06/07/2017 Injection Technetium TC 99M Suhail Yanez, DO [facility] 06/07/2017 Tetrofosmin, Per Unit Dose Up To 40 Millicuries Injection Immunizations Description No Information Available Vital Signs Date Vital Result Comment 08/09/2019 1:37pm Height 68 inches 5'8" Weight 149.00 lb Heart Rate 72 /min BP Systolic Sitting 136 mmHg BP Diastolic Sitting 82 mmHg BMI (Body Mass Index) 22.7 kg/m2 04/12/2019 11:38am Height 68 inches 5'8" Weight 149.25 lb Heart Rate 74 /min BP Systolic Sitting 140 mmHg BP Diastolic Sitting 66 mmHg Respiratory Rate 18 /min BMI (Body Mass Index) 22.7 kg/m2 Results Description No Information Available Procedures Date Code Description Status 05/09/2019 49465 ECHO Transthoracic, Real-Time 2D With Doppler And Color Completed Flow 05/09/2019 02523 ECHO Transthoracic, Real-Time 2D With Doppler And Color Completed Flow 11/13/2006 18998307 Colonoscopy Completed Medical Devices Description No Information Available Encounters Type Date Location Provider Dx Diagnosis Office Visit 04/12/2019 [facility] Vee Sarabia, I69.318 Other symptoms 11:30a [facility] and signs w cogn fnctns fol cerebral infrc F01.51 Vascular dementia with behavioral disturbance G24.01 Drug induced subacute dyskinesia I65.21 Occlusion and stenosis of right carotid artery K59.00 Constipation, unspecified Assessments Date Code Description Provider 08/09/2019 F01.51 Vascular dementia with behavioral Vee Sarabia M.D. disturbance 08/09/2019 G24.01 Drug induced subacute dyskinesia Vee Sarabia M.D. 05/09/2019 I35.8 Other nonrheumatic aortic valve disorders Traveling ECHO 1 05/09/2019 I35.0 Nonrheumatic aortic (valve) stenosis Suhail Yanez DO [facility] 05/09/2019 I35.0 Nonrheumatic aortic (valve) stenosis Traveling ECHO 1 04/12/2019 I69.318 Other symptoms and signs involving Vee Sarabia M.D. cognitive functions follo 04/12/2019 F01.51 Vascular dementia with behavioral Vee Sarabia M.D. disturbance 04/12/2019 G24.01 Drug induced subacute dyskinesia Vee Sarabia M.D. 04/12/2019 I65.21 Occlusion and stenosis of right carotid Vee Sarabia M.D. artery 04/12/2019 K59.00 Constipation, unspecified Vee Sarabia M.D. Plan of Treatment Future Appointment(s):03/20/2020 10:00 am - Vee Sarabia M.D. at [facility]08/09/2019 - Vee Sarabia M.D.F01.51 Vascular dementia with behavioral disturbanceFollow up:March (30 min)Recommendations:re- start riding the bicycle with TV. Start with 15 minutes, and work up to 30 minutes a dayG24.01 Drug induced subacute dyskinesia Functional Status Description No Information Available Mental Status Description No Information Available Referrals Description No Information Available
--- OUTSIDE RECORDS SUMMARY | 2019-08-27 11:08 | XMS REPORT | Continuity of Care Document ---
:1950 External Reference #:[id number] Author Name Gal Conroy M.D. Address [address] [place] [address] Care Team Providers Name Role Phone Erasto Baxter M.D. - Internal Care Team Information Electromechanical Equipment Tester Medicine Vee Sarabia M.D. - Neurology Care Team Information Electromechanical Equipment Tester Problems Active Problems Provider Date Type 2 [...] Use Denies Drug Use Smoking Status Reviewed: 07/25/19 Patient has never smoked Allergies, Adverse Reactions, Alerts Active Allergies Reaction Severity Comments Date Morphine 04/11/2018 Seasonal 06/26/2019 Inactive Allergies NKDA 05/25/2017 Medications Active Medications SIG Qnty Indications Ordering Date Provider Ciprofloxacin HCL instill one drop 5ml Gal Conroy, 07/09/2019 0.3% in the right eye M.DDallas Solution three times a day, start the day before surgery Ketorolac Tromethamine use one drop in 10ml Gal CarlosDallas Conroy, 07/09/2019 the right eye M.D. 0.5% Solution three times a day, start the day before surgery Prednisolone Acetate 1 drops right 10ml Gal GonzalezDallas Conroy, 07/09/2019 1% eye three times M.D. Suspension a day. taper as directed Artificial Tears as needed Gal Conroy, 07/08/2019 [...] Depakote sprinkles, 2 x Unknown 125mg Tablets DR day Clonazepam Unknown 1mg Tablets Aleve Unknown 220mg Tablets Namenda 2 x day Unknown 10mg Tablets Glucophage Unknown 500mg Tablets Aspir-Low Unknown 81mg Tablets DR Rosuvastatin Calcium Unknown 5mg Tablets Immunizations Description No Information Available Vital Signs Description No Information Available Results Test Date Facility Test Result H/L Range Note Laboratory test 07/24/2019 [facility] 110 mg/dL High 70-[address] [place] [address] [phone] 3 School Custodian: [id number] Procedures Date Code Description Status 07/24/2019 21406 Extracapsular Cataract Extraction W/Intraocular Lens Completed 07/09/2019 62731 Ophthalmic Biometry Completed 07/09/2019 73420 Scanning Computerized Opthalmic Diagnostic Posterior Seg Completed Retina 07/09/2019 88313 Computerized Corneal Topography Completed 07/09/2019 10395 Est Patient Intermediate Exam Completed 06/26/2019 52933 Determination Of Refractive State Completed 06/26/2019 15259 Est Patient Comprehensive Exam Completed Medical Devices Description No Information Available Encounters Description No Information Available Assessments Date Code Description Provider 07/25/2019 Z96.1 Presence of intraocular lens Gal [...] Yesenia Licea O.D. Plan of Treatment Future Appointment(s):08/13/2019 11:15 am - Yesenia Licea O.D. at Gal Conroy MD, 07/25/2019 - Gal Conroy M.D.Z96.1 Presence of intraocular lensComments:Smoking can increase the risk of developing or worsening any eye related disease, as well as affect your overall health. If you are a smoker, we strongly recommend that you quit.If you are not a smoker, we strongly recommend that you do not start. The artifical lens implant in your right eye appearsto be stable. Since this is the first day after surgery, your right eye is still dilated and the vision will still be slightly blurry. The dilation will go down over the next day or two. Continue taking your eye drops as directed on the surgical calendar. If you have any questions, please call [email or web address].E11.9 Type 2 diabetes mellitus without complicationsFollow up:1 Year Follow Up You can expect to have your eyes dilated at your next visit. If Dr. Conroy orders any additional testing, it may require extra time. We recommend that you bring sunglasses, as dilationdrops often make you light sensitive until they [...]
--- OUTSIDE RECORDS SUMMARY | 2019-08-27 11:08 | XMS REPORT | Continuity of Care Document ---
:1950 External Reference #:[id number] Author Name Gal Conroy M.D. Address [address] [place] [address] Care Team Providers Name Role Phone Erasto Baxter M.D. - Internal Care Team Information Counter Tacker Medicine Vee Sarabia M.D. - Neurology Care Team Information Counter Tacker [phone] Problems Active Problems Provider Date Type 2 diabetes mellitus Onset: Hypertension Onset: Hypercholesterolemia Onset: H/O: Stroke in last year Onset: Vascular dementia Onset: Vitreous degeneration Yesenia Licea O.D. Onset: 05/25/2017 Presence of intraocular lens Yesenia Licea O.D. Onset: 05/25/2017 Nuclear senile cataract Yesenia Licea O.D. Onset: 05/25/2017 Chronic allergic conjunctivitis Yesenia Licea O.D. Onset: 05/25/2017 Social History Type Date Description Comments Sex Unknown ETOH Use Rarely consumes alcohol Tobacco Use Start: Unknown Patient has never smoked Recreational Drug Use Denies Drug Use Smoking Status Reviewed: 07/09/19 Patient has never smoked Allergies, Adverse Reactions, [...] one drop in 10ml Gal Conroy, 07/09/2019 the right eye M.D. 0.5% Solution three times a day, start the day before surgery Prednisolone Acetate 1 drops right 10ml Gal Conroy, 07/09/2019 1% eye three times M.D. [...] Vital Signs Description No Information Available Results Description No Information Available Procedures Date Code Description Status 06/26/2019 19673 Determination Of Refractive State Completed 06/26/2019 51686 Est Patient Comprehensive Exam Completed Medical Devices Description No Information Available Encounters Description No Information Available Assessments Date Code Description Provider 07/09/2019 H25.11 Age-related nuclear cataract, right eye [...] Yesenia Licea O.D. Plan of Treatment Future Appointment(s):08/08/2019 2:00 pm - Yesenia Licea O.D. at Gal Conroy MD, 07/25/2019 11:45 am - Gal Conroy M.D. at Gal Conroy MD, 07/24/2019 7:00 am - Gal Conroy M.D. at Gal Conroy MD, 2018 - Gal Conroy M.D.H25.11 Age-related nuclear cataract, right eyeComments:Smoking can increase the risk of developing or worsening any eye related disease, as well as affect your overall health. If you are a smoker, we strongly recommend that you quit.If you are not a smoker, we strongly recommend that you do not start. Dense cataract in the right eye.Follow up:For surgery. Please keep post op appointments as scheduled.DFE/IOPE11.9 Type 2 diabetes mellitus without cyoypvdwwsuwjP17.45 Other chronic allergic axixbagwydufaeK50.1 Presence of intraocular lens Functional Status Description No Information Available Mental Status Description No Information Available Referrals Description No Information Available
--- OUTSIDE RECORDS SUMMARY | 2019-08-27 11:08 | XMS REPORT | Continuity of Care Document ---
:1950 External Reference #:[id number] Author Name Erasto Baxter M.D. Address [address] [place] [address] Care Team Providers Name Role Phone Erasto Baxter MD - Family Medicine Care Team Information Floor Sanding Machine Operator [phone] [facility] - Cardiovascular Care Team Information Floor Sanding Machine Operator [phone] Disease Problems Active Problems Provider Date Essential hypertension Erasto Baxter M.D. Onset: 08/14/2011 Type 2 diabetes mellitus Erasto Baxter M.D. Onset: 08/15/2011 Hyperlipidemia Erasto Baxter M.D. Onset: 08/15/2011 Aortic valve disorder Erasto Baxter M.D. Onset: 08/15/2011 Depressive disorder Erasto Baxter M.D. Onset: 05/21/2013 Disorder of skin and/or subcutaneous tissue Erasto Baxter M.D. Onset: 07/2013 Benign prostatic hypertrophy without outflow Erasto Baxter M.D. 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 Onset: artery occlusion History of polyp of colon Erasto Baxter M.D. Onset: 05/22/2017 Combined form of senile cataract Erasto Baxter M.D. Onset: 07/12/2019 Social History Type Date Description Comments Sex Unknown Tobacco Use Start: Unknown Never Smoked Cigarettes ETOH Use Occasionally consumes alcohol Allergies, Adverse Reactions, Alerts Active Allergies Reaction Severity Comments Date Omeprazole diarrhea 07/23/2009 Morphine anger 11/23/2018 Medications Active Medications SIG Qnty Indications Ordering Date Provider Losartan Potassium 1 by mouth every 90tabs Erasto F. 07/12/2019 25mg day Shantel Baxter Tablets Clonazepam Take One Tablet 30tabs Erasto F. 06/03/2019 1mg Tablets By Mouth AT Shantel Baxter Bedtime Maximum Daily Dose = 1 Memantine HCL take 1 tablet by Erasto F. 03/26/2018 10mg mouth twice a day Shantel Baxter Tablets Docusate Sodium Take 1-2 Capsules 100caps Erasto F. 03/26/2018 100mg By Mouth Once Shantel Baxter Capsules Daily as Needed Aspirin 1 by mouth every 100tabs Erasto F. 81mg Tablets DR day Shantel Baxter Rivastigmine Erasto F. Transdermal System Shantel Baxter 4.6mg/24HR Patches 24HR Geodon take 1 capsule by Erasto F. 40mg Capsules mouth qd Shantel Baxter Aleve prn Erasto F. 220mg Capsules Shantel Baxter Divalproex Sodium take 2 tablet by Erasto F. 125mg mouth two times Shantel Baxter Tablets DR daily or as directed Metformin HCL Take One Tablet 180tabs Erasto F. 500mg By Mouth Twice A Shantel Baxter Tablets Day Rosuvastatin Calcium Take 1 Tablet By 90tabs Erasto F. Mouth Every Day Shantel Baxter 5mg Tablets Immunizations Description No Information Available Vital Signs Date Vital Result Comment 07/12/2019 1:10pm BP Systolic 101 mmHg BP Diastolic 66 mmHg Heart Rate 72 /min Body Temperature 98.6 F Respiratory Rate 16 /min Height 66.25 inches 5'6.25" measured 07/12/19 Weight 148.12 lb BMI (Body Mass Index) 23.7 kg/m2 06/03/2019 10:55am BP Systolic 130 mmHg BP Diastolic 76 mmHg Heart Rate 68 /min Body Temperature 98.1 F Height 66.5 inches 5'6.50" measured Weight 148.00 lb BMI (Body Mass Index) 23.5 kg/m2 Results Test Date Facility Test Result H/L Range Note Ua - Non Micro (Fma) 07/12/2019 [facility] Appearance clear (607)- - Color yellow Glucose, Urine (a/[facility]/CTX) 100 mg/dl High known diabetic Bilirubin neg Ketones trace SP Grav 1.015 Blood neg PH 5.5 Protein neg Urobil 1.0 Nitrite neg Leukocytes ([facility]/Centrex) neg CBC Auto Diff 06/14/2019 [facility] White Blood Count 5.8 10^3/uL Normal 3.5- 10.8 Red Blood Count 4.08 10^6/uL Low 4.18-5.48 Hemoglobin 13.2 g/dL Low 14.0-18.0 Hematocrit 38 % Low 42-52 Mean Corpuscular Volume 93 fL Normal 80-94 Mean Corpuscular Hemoglobin 33 pg High 27-31 Mean Corpuscular HGB Conc 35 g/dL Normal 31-36 Red Cell Distribution Width 14 % Normal 10-15 Platelet Count 226 10^3/uL Normal 150-450 Mean Platelet Volume 8.8 fL Normal 7.4-10.4 Abs Neutrophils 3.2 10^3/uL Normal 1.5-7.7 Abs Lymphocytes 1.7 10^3/uL Normal 1.0-4.8 Abs Monocytes 0.5 10^3/uL Normal 0-0.8 Abs Eosinophils 0.3 10^3/uL Normal 0-0.6 Abs Basophils 0.1 10^3/uL Normal 0-0.2 Abs Nucleated RBC 0.0 10^3/uL Granulocyte % 55.4 % Lymphocyte % 29.0 % Monocyte % 9.2 % Eosinophil % 5.5 % Basophil % 0.9 % Nucleated Red Blood Cells % 0.0 Comp Metabolic Panel 06/14/2019 [facility] Sodium 141 mmol/L Normal 135-145 Potassium 4.8 mmol/L Normal 3.5-5.0 Chloride 104 mmol/L Normal 101-111 Co2 Carbon Dioxide 32 mmol/L Normal 22-32 Anion Gap 5 mmol/L Normal 2-11 Glucose 91 mg/dL Normal 70-100 Blood Urea Nitrogen 15 mg/dL Normal 6-24 Creatinine 0.92 mg/dL Normal 0.67-1.17 BUN/Creatinine Ratio 16.3 Normal 8-20 Calcium 10.3 mg/dL Normal 8.6-10.3 Total Protein 6.8 g/dL Normal 6.4-8.9 Albumin 4.4 g/dL Normal 3.2-5.2 Globulin 2.4 g/dL Normal 2-4 Albumin/Globulin Ratio 1.8 Normal 1-3 Total Bilirubin 0.40 mg/dL Normal 0.2-1.0 Alkaline Phosphatase 47 U/L Normal 34-104 Alt 13 U/L Normal 7-52 Ast 17 U/L Normal 13-39 Egfr Non- 81.3 >60 Egfr 98.4 >60 1 Inr/Protime 06/14/2019 [facility] Inr 1.14 High 0.82-1.09 2 Comprehensive Metabolic 06/03/2019 [facility](fma) Sodium 141 mEq/L 134-149 Prof Potassium 4.3 mEq/L 3.6-5.5 Chloride 99 mEq/L 94-112 Carbon Dioxide 28 mEq/L 21-32 Glucose 181 mg/dL High 70-105 3 BUN 15 mg/dL 6-26 Creatinine 0.8 mg/dL 0.6-1.4 BUN/Creat Ratio 18.8 CALC 8.0-36.0 Calcium 10.2 mg/dL 8.6-10.2 Total Protein 6.8 g/dL 6.4-8.3 Albumin 4.7 g/dL 3.8-5.5 Globulin 2.1 g/dL 2.0-4.8 A/G Ratio 2.2 CALC 0.6-2.3 Alk. Phosphatase 57 U/L 22-95 Alt (SGPT) 15 U/L 7-35 Ast (Sgot) 18 U/L 5-34 Total Bilirubin 0.4 mg/dL 0.2-1.3 GFR Non- >60 ml/min/1.73m^ >=60 GFR >60 ml/min/1.73m^ >=60 Lipid Profile 06/03/2019 [facility]) Cholesterol 116 mg/dL Low 120-200 4 Triglycerides 61 mg/dL 30-200 HDL Cholesterol 49 mg/dL 30-70 LDL (Calculated) 55 CALC 0-129 VLDL Cholesterol 12 mg/dL 0-50 HDL Risk Factor 2.4 CALC 0.0-4.4 Laboratory test finding 06/03/2019 [facility]) PSA 1.4 ng/mL 0.0 -4.0 CBC Electronic Fma 06/03/2019 [facility](fma) WBC 6.9 x10^3/UL 4.0- 10.0 RBC 4.31 x10^6/UL 3.93-6.00 HGB 13.7 g/dL 12.0-17.0 HCT 41 % 35-50 MCV 94.9 fL 80.0-95.0 MCH 31.8 pg 25.6-32.2 MCHC 33.5 g/dL 32.2-36.0 RDW-CV 13.0 % 11.6-14.4 PLT 236 x10^3/UL 163-400 MPV 10.8 fL 9.4-12.4 Hayley# 4.73 x10^3/UL 1.56-6.13 Lymph# 1.35 x10^3/UL 1.18-3.74 [place]# 0.56 x10^3/UL 0.24-0.82 Eos # 0.2 x10^3/UL 0.0-0.5 Baso # 0.03 x10^3/UL 0.01-0.08 Hayley% 68.8 % 34.0-70.0 Lymph % 19.6 % Low 20.0-52.0 [place]% 8.1 % 5.0-12.0 Eos% 3.0 % 0.7-7.0 Baso% 0.4 % 0.1-1.2 Laboratory test 06/03/2019 [facility] Microalb, Random 10.9 mg/L 0.5-37 finding (607)- - ([facility]/CTX) Ua - Non Micro 06/03/2019 [facility] Appearance Clear (a) (607)- - Color Yellow Glucose, Urine (F[facility]/CTX) 500 High Known DM Bilirubin Negative Ketones Trace SP Grav 1.015 Blood Negative PH 5.5 Protein Negative Urobil 1.0 Nitrite Negative Leukocytes (Fma/[facility]) Negative Laboratory test 06/03/2019 [facility] Hemoglobin A1c 5.8 % High 4.1- 5.7 finding (607)- - (Fma) Laboratory test 05/23/2019 [facility] Surgical SEE RESULT 5, 6 finding Pathology BELOW 1 Because ethnic data is not always readily available, this report includes an eGFR for both -Americans and non- Americans. The National Kidney Disease Education Program (NKDEP) does not endorse the use of the MDRD equation for patients that are not between the ages of 18 and 70, are , have extremes of body size, muscle mass, or nutritional status, or are non- or non-. According to the National Kidney Foundation, irrespective of diagnosis, the stage of the disease is based on the level of kidney function: Stage Description GFR(mL/min/1.73 m(2)) 1 Kidney damage with normal or decreased GFR 90 2 Kidney damage with mild decrease in GFR 60-89 3 Moderate decrease in GFR 30-59 4 Severe decrease in GFR 15-29 5 Kidney failure <15 (or dialysis) 2 Standard intensity warfarin therapeutic range: 2.0-3.0 High intensity warfarin therapeutic range: 2.5-3.5 3 NON-FASTING 4 RESULTS VERIFIED BY REPEAT ANALYSIS 5 4085-A:Morphology: irregularly pigmented macule with irregular pigmentary network under dermoscop 6 SEE RESULT BELOW Name: HUNTER SAEZ Erlin : [address]: Elise Gasca MD Acct: [id number] Unit: [id number] AGE: 68 Location: [facility] Re05/23/19 SEX: M Status: REG REF SPEC: [id number] CASEY: 05/23/19-[address] [facility] [address]: Elise Gasca MD REQ: [id number] RECD: 05/23/19889 STATUS: KILLIAN NAJERA DR: Erasto Baxter MD _ ORDERED: LEVEL 4 COMMENTS: [id number] FINAL DIAGNOSIS Skin, right mid abdomen, excisional biopsy: -- Compound melanocytic nevus with architectural disorder and moderate cytologic atypia. -- The lesion is excised in the planes of sectioning examined. CLINICAL HISTORY Please check margins PRE-OPERATIVE DIAGNOSIS Irregularly pigmented macule with irregular pigmentary network under dermoscopy; dysplastic nevus GROSS DESCRIPTION The specimen is received in formalin labeled, Right Mid Abdomen, and consists of a 0.9 x 0.6 cm white-pink shaggy ovoid skin shave with a 0.3 by up to 0.3 cm stippled brown-black irregular macule. The specimen is inked, serially sectioned and submitted entirely in one cassette. Signed by and Reported on: Dea Case MD 05/24/19 1020 END OF REPORT DEPARTMENT OF PATHOLOGY, [address] [place] [address] Jeremie Balderrama M.D. Director [facility] # [id number] Procedures Date Code Description Status 07/12/2011 42188465 Colonoscopy Completed Medical Devices Description No Information Available Encounters Type Date Location Provider Dx Diagnosis Office Visit 06/03/2019 [facility] Office Erasto Choe E11.9 Type 2 diabetes 10:30a Shantel Baxter mellitus without complications I35.8 Other nonrheumatic aortic valve disorders I63.321 Cerebral infrc due to thombos of right ant cerebral artery N40.0 Benign prostatic hyperplasia without lower urinry tract symp Assessments Date Code Description Provider 07/12/2019 H25.89 Other age-related cataract Erasto Baxter M.D. 07/12/2019 E11.9 Type 2 diabetes mellitus without Erasto Baxter M.D. complications 07/12/2019 I35.8 Other nonrheumatic aortic valve disorders Erasto Baxter M.D. 07/12/2019 I63.321 Cerebral infarction due to thrombosis of Erasto Baxter M.D. right anterior cere 07/12/2019 I10 Essential (primary) hypertension Erasto Baxter M.D. 06/03/2019 E11.9 Type 2 diabetes mellitus without Erasto Baxter M.D. complications 06/03/2019 I35.8 Other nonrheumatic aortic valve disorders Erasto Baxter M.D. 06/03/2019 I63.321 Cerebral infarction due to thrombosis of Erasto Baxter M.D. right anterior cere 06/03/2019 N40.0 Benign prostatic hyperplasia without lower Erasto Baxter M.D. urinary tract sym Plan of Treatment Future Appointment(s):09/13/2019 10:00 am - Erasto Baxter M.D. at [facility]07/12/2019 - Erasto Baxter M.D.H25.89 Other age-related cataractComments:I feel he is medically clear for the planned cataract surgery by Dr. Bernard11.9 Type 2 diabetes mellitus without complicationsComments: Continue present dose of llgmqpvkeL39.8 Other nonrheumatic aortic valve disordersComments:Continue routine followup of aortic jyznatyxN87.321 Cerebral infarction due to thrombosis of right anterior cereComments:Patient has upcoming appointment with Dr. Reed Essential (primary) hypertensionComments:Discontinue diltiazem and start losartan 25 mg daily, hopefully this will help improve his chronic constipationAllNew Medication: Losartan Potassium 25 mg - 1 by mouth every dayComments:Patient has been stable since his last exam. He had a recent June of 2019 emergency room visit fora post occipital headache. MRA and MRI of the brain was negative showing only previous right frontalstroke. He has an appointment with Dr. Sarabia in the near future. Patient has chronic constipation and his blood pressure has been well controlled. We discussed stopping his diltiazem (Cardizem) to see if this could help improve his bowel habits. He will start losartan 25 mg daily and contact us withblood pressure readings. I will contact with his psychiatrist in [place] regarding his tardive dyskinesia from [facility].Overall I feel he is medically clear for the planned cataract surgery by Dr. Lopez up:3 months Functional Status Description No Information Available Mental Status Description No Information Available Referrals Refer to Dr Reason for Referral Status Appt Date Rajiv Tyson MD echocardiogram Scheduled 05/09/[address] [place] [address] [address] [place] [address] [phone]
[2019-08-27 11:15] VITALS: BP 137/75
--- NOTE | 2019-08-27 12:00 | UC ---
Skin Complaint HPI - HPI Summary HPI Summary: 69-year-old male with history of dementia presents with his with concern of a tick bite to his left lower leg. States yesterday he was outdoors watching his grandsons soccer game and noticed what he thought was a tick to his left lower leg. States he immediately pulled it off and noticed a lot of bleeding from the area. Patient brought the suspect attempted with him in a plastic bag however it appears to be a scab. states she did not see a tick. Denies fever, chills, rash, flulike illness, myalgias, joint pain or swelling, redness or swelling of the leg. - History of Current Complaint Chief Complaint: UCSkin Time Seen by Provider: 08/27/19 11:49 Stated Complaint: SKIN ISSUE Hx Obtained From: Patient Pain Intensity: 0 - Allergy/Home Medications Allergies/Adverse Reactions: Allergies Allergy/AdvReac Type Severity Reaction Status Date / Time morphine Allergy Agitation Verified 08/27/19 11:15 omeprazole Allergy Unknown Verified 08/27/19 11:15 Reaction Details Home Medications: Home Medications Losartan Potassium 25 mg PO DAILY WITH MEAL 08/27/19 [History Confirmed 08/27/19 ] PMH/Surg Hx/FS Hx/Imm Hx Endocrine History: Diabetes, Dyslipidemia Cardiovascular History: Hypertension, Other - Aortic stenosis Neurological History: CVA, Dementia - Surgical History Surgical History: Yes Surgery Procedure, Year, and Place: DISLOCATION OF LEFT KNEE OPEN PROCEDURE [address] DR GRIFFITH. 3 KNEE SCOPINGS OVER MANY YEARS DONE AT [facility] [place]. Left total knee replacement in 2017. Cataract surgery in left eye in [place]--2015. TONSILLECTOMY AT AGE 40YR [facility] [place] - Family History Known Family History: Positive: Other - Alzheimers - sister, Pt is adopted - Social History Occupation: Retired Lives: With Family Alcohol Use: Rare Alcohol Amount: WINE Substance Use Type: None Smoking Status (MU): Never Smoked Tobacco Have You Smoked in the Last Year: No - Immunization History Most Recent Influenza Vaccination: NONE Most Recent Pneumonia Vaccination: NONE Review of Systems All Other Systems Reviewed And Are Negative: Yes Constitutional: Negative: Fever, Chills Skin: Positive: Other - See HPI. Negative: Rash Respiratory: Positive: Negative Cardiovascular: Positive: Negative Gastrointestinal: Positive: Negative Musculoskeletal: Positive: Negative Neurological: Positive: Negative Is Patient Immunocompromised?: No Physical Exam - Summary Physical Exam Summary: GENERAL APPEARANCE: Well developed, well nourished, alert and cooperative, and appears to be in no acute distress. CARDIAC: Normal S1 and S2. No S3, S4 or murmurs. Rhythm is regular. There is no peripheral edema, cyanosis or pallor. Extremities are warm and well perfused. Capillary refill is less than 2 seconds. Peripheral pulses intact. LUNGS: Clear to auscultation without rales, rhonchi, wheezing or diminished breath sounds. ABDOMEN: Positive bowel sounds. Soft, nondistended, nontender. No guarding or rebound. No masses or hepatosplenomegally. MUSKULOSKELETAL: ROM intact to all extremities. No joint erythema or tenderness. Normal muscular development. Normal gait. EXTREMITIES: Small skin tear less than 1 cm in diameter to the anterior aspect of the left lower leg. No erythema or edema present. SKIN: Skin normal color, texture and turgor. Triage Information Reviewed: Yes Vital Signs: Initial Vital Signs Temp 98.4 F 08/27/19 11:08 Pulse 71 08/27/19 11:08 Resp 19 08/27/19 11:08 BP 137/75 08/27/19 11:08 Pulse Ox 99 08/27/19 11:08 Vital Signs Reviewed: Yes Course/Dx - Course Course Of Treatment: 69-year-old male with history of dementia presents with his with concern of a tick bite to his left lower leg. States yesterday he was outdoors watching his grandsons soccer game and noticed what he thought was a tick to his left lower leg. States he immediately pulled it off and noticed a lot of bleeding from the area. Patient brought the suspect attempted with him in a plastic bag however it appears to be a scab. states she did not see a tick. Denies fever, chills, rash, flulike illness, myalgias, joint pain or swelling, redness or swelling of the leg. Afebrile. Vital signs stable. Patient had a small skin tear to the anterior aspect of his left lower leg without erythema or edema. Remainder of exam was unremarkable. I discussed with the patient that I suspect that was on his leg was a scab secondary to the skin tear as opposed to a tick however we also discussed that if there was a tick bite the fact that he immediately removed it that there was a very small chance of transmission of Lyme disease. Recommending conservative wound care for the skin tear. We reviewed signs and symptoms of Lyme disease. He is to follow-up with his primary care provider if needed. Anticipatory guidance and warning symptoms were reviewed with the patient . Verbalized understanding and agreement with plan of care. - Differential Diagnoses - Skin Complaint Differential Diagnoses: Cellulitis, Local Allergic Reaction, MRSA, Tick Born Illness - Diagnoses Provider Diagnosis: Noninfected skin tear of left lower extremity Discharge ED - Sign-Out/Discharge Documenting (check all that apply): Patient Departure All imaging exams completed and their final reports reviewed: No Studies - Discharge Plan Condition: Stable Disposition: HOME Patient Education Materials: Skin Tear (ED) Referrals: Erasto Baxter MD [Primary Care Provider] - 3 Days Additional Instructions: The lesion on your leg is a small skin tear without any signs of infection. I do not have any concern for a rash suggestive of Lyme disease at this time. Keep the wound clean with a mild soap and water. Apply an antibiotic ointment and cover with bandage until healed. Monitor for signs of Lyme disease over the nexter several weeks even if you have been given antibiotics to prevent the infection. Seek immediate medical attention if you develop a bullseye rash, fever, flu-like symptoms including headache, stiff neck, fatigue, muscle aches, joint pain or swelling. Follow-up with your primary care provider in 3-5 days for recheck of symptoms or if you have any concerns. Seek immediate medical attention if you develop fever greater than 100.5 F, severe pain not managed with over the counter pain medication, redness that spreads, swelling of the leg, or pus draining from the wound. - Billing Disposition and Condition Condition: STABLE Disposition: Home
== END 2019-08-27 12:15 | disposition home or self-care (01) ==
LOC: UCEAST 11:00
DX: S81.812A Laceration without foreign body, left lower leg, initial encounter (principal); E11.9 Type 2 diabetes mellitus without complications; F03.90 Unspecified dementia, unspecified severity, without behavioral disturbance, psychotic disturbance, mood disturbance, and anxiety; I10 Essential (primary) hypertension; Z88.5 Allergy status to narcotic agent; Z88.8 Allergy status to other drugs, medicaments and biological substances; Z79.899 Other long term (current) drug therapy; Z86.73 Personal history of transient ischemic attack (TIA), and cerebral infarction without residual deficits; Z96.652 Presence of left artificial knee joint; X58.XXXA Exposure to other specified factors, initial encounter; Y92.89 Other specified places as the place of occurrence of the external cause
CPT/HCPCS: 99211; G0463

== ENCOUNTER 2020-07-03 09:43 | Observation (INO) ==
[2020-07-03 10:35] LABS: ABS Eosinophils 0.3 10^3/ul (0-0.6); ABS Lymphocytes 1.1 10^3/ul (1.0-4.8); ABS Monocytes 0.4 10^3/ul (0-0.8); Eosinophil % 6.3 %; Hematocrit 34 % (42-52); Hemoglobin 11.8 g/dL (14.0-18.0); Mean Corpuscular HGB Conc 34 g/dL (31-36); Mean Corpuscular Hemoglobin 32 pg (27-31); Mean Corpuscular Volume 95 fL (80-94); Mean Platelet Volume 8.6 fL (7.4-10.4); Platelet Count 206 10^3/uL (150-450); Red Blood Count 3.64 10^6 /uL (4.18-5.48); Red Cell Distribution Width 14 % (10-15); White Blood Count 4.9 10^3/uL (3.5-10.8)
[2020-07-03 10:42] LABS: INR 1.08 (0.82-1.09)
[2020-07-03 11:15] LABS: Albumin 3.8 g/dL (3.2-5.2); BUN/Creatinine Ratio 20.9 (8-20); Calcium 9.3 mg/dL (8.6-10.3); EGFR African American 106.1 (>60); EGFR Non-African American 87.7 (>60); Globulin 1.9 g/dL (2-4); Potassium 3.8 mmol/L (3.5-5.0); Total Bilirubin 0.4 mg/dL (0.2-1.0); Total Protein 5.7 g/dL (6.4-8.9)
[2020-07-03 11:35] LABS: TSH Ultra Thyroid Stim Horm 1.21 mcIU/mL (0.34-5.60)
[2020-07-03 12:08] LABS: Urine Appearance Clear; Urine Bilirubin Negative (Negative); Urine Blood Negative (Negative); Urine Color Straw; Urine Glucose Negative (Negative); Urine Ketones Trace (Negative); Urine Nitrite Negative (Negative); Urine Protein Negative (Negative); Urine Urobilinogen Negative (Negative)
[2020-07-03] MEDS ORDERED: hydrALAZINE 20 mg/ml 1 ML Vial IV IV SLOW PU ONE (13:40)
[2020-07-03] MEDS ORDERED: Magnesium Hydroxide LIQ 30 ML UDC PO PRN (14:21)
[2020-07-03] MEDS ORDERED: Dextrose 50% Syringe 50 ml 25 GM/50 ML SYRINGE IV PUSH PRN (14:45)
[2020-07-03] MEDS ORDERED: hydrALAZINE 20 mg/ml 1 ML Vial IV IV SLOW PU PRN (14:45)
[2020-07-03] MEDS ORDERED: Enoxaparin 40 MG/0.4 ML SYR SUBCUT SCH (15:00)
[2020-07-03 15:17] LABS: Folate 10.58 ng/mL (>3.99)
[2020-07-04 08:45] VITALS: BP 153/76
[2020-07-04] MEDS ORDERED: RIVASTIGMINE 4.6 MG TRANSDERM SCH (09:00)
[2020-07-04] MEDS ORDERED: Aspirin EC 81 mg TAB.EC (enteric coated) PO SCH (09:00)
[2020-07-04] MEDS ORDERED: CMCS:Rosuvastatin 5 mg TAB (NF) PO SCH (09:00)
[2020-07-04 09:52] LABS: ABS Lymphocytes 0.8 10^3/ul (1.0-4.8); ABS Monocytes 0.4 10^3/ul (0-0.8); ABS Neutrophils 4.5 10^3/ul (1.5-7.7); Eosinophil % 0.8 %; Hematocrit 35 % (42-52); Hemoglobin 12.3 g/dL (14.0-18.0); Mean Corpuscular HGB Conc 35 g/dL (31-36); Mean Corpuscular Hemoglobin 33 pg (27-31); Mean Corpuscular Volume 94 fL (80-94); Mean Platelet Volume 8.5 fL (7.4-10.4); Platelet Count 233 10^3/uL (150-450); Red Blood Count 3.78 10^6 /uL (4.18-5.48); Red Cell Distribution Width 14 % (10-15); White Blood Count 5.9 10^3/uL (3.5-10.8)
[2020-07-04 10:06] LABS: Calcium 9.8 mg/dL (8.6-10.3); EGFR African American 98.1 (>60); EGFR Non-African American 81.1 (>60); Potassium 3.7 mmol/L (3.5-5.0)
[2020-07-04] MEDS ORDERED: Pneumococcal Vac 23-Polyvalent IM ONE (14:05)
== END 2020-07-04 15:20 | disposition home or self-care (01) ==
LOC: ED 09:43 → MED 09:43
PROVIDERS: ADMIT Internal Medicine; ATTEND Internal Medicine

== ENCOUNTER 2020-07-21 18:28 | Inpatient (IN) ==
[2020-07-21 19:11] LABS: ABS Eosinophils 0.3 10^3/ul (0-0.6); ABS Lymphocytes 1.2 10^3/ul (1.0-4.8); ABS Monocytes 0.5 10^3/ul (0-0.8); ABS Neutrophils 2.8 10^3/ul (1.5-7.7); Eosinophil % 7.3 %; Hematocrit 38 % (42-52); Hemoglobin 12.7 g/dL (14.0-18.0); Lymphocyte % 24.5 %; Mean Corpuscular HGB Conc 33 g/dL (31-36); Mean Corpuscular Hemoglobin 31 pg (27-31); Mean Corpuscular Volume 95 fL (80-94); Mean Platelet Volume 9.2 fL (7.4-10.4); Platelet Count 237 10^3/uL (150-450); Red Blood Count 4.04 10^6 /uL (4.18-5.48); Red Cell Distribution Width 14 % (10-15); White Blood Count 4.8 10^3/uL (3.5-10.8)
[2020-07-21 19:27] LABS: Troponin I 0.02 ng/mL (<0.03)
[2020-07-21 19:37] LABS: Albumin 4.5 g/dL (3.2-5.2); Albumin/Globulin Ratio 2.3 (1-3); BUN/Creatinine Ratio 17.1 (8-20); Calcium 10.4 mg/dL (8.6-10.3); EGFR African American 112.1 (>60); EGFR Non-African American 92.6 (>60); Magnesium 1.7 mg/dL (1.9-2.7); Potassium 3.9 mmol/L (3.5-5.0); Total Bilirubin 0.5 mg/dL (0.2-1.0); Total Protein 6.5 g/dL (6.4-8.9)
[2020-07-21] MEDS ORDERED: Magnesium Sulfate IV 1GM/100ML 1 GM/100 ML BAG IV ONE (19:42)
[2020-07-21] MEDS ORDERED: NS 0.9% 1000 ml BAG 1,000 ML IV ONE (19:42)
[2020-07-21 19:53] LABS: TSH Ultra Thyroid Stim Horm 1.34 mcIU/mL (0.34-5.60)
[2020-07-21 21:21] LABS: Urine Appearance Clear; Urine Bilirubin Negative (Negative); Urine Blood Negative (Negative); Urine Color Straw; Urine Glucose 1+(50 mg/dL) (Negative); Urine Ketones Negative (Negative); Urine Nitrite Negative (Negative); Urine Protein Negative (Negative); Urine Specific Gravity 1.004 (1.010-1.030); Urine Urobilinogen Negative (Negative)
[2020-07-21] MEDS ORDERED: Ziprasidone IM 20 mg VIAL 1 ml VIAL IM ONE (22:32)
[2020-07-22] MEDS: NS 0.9% 1000 ml BAG 1,000 ML IV SCH ×2 (01:52→12:37)
[2020-07-22] MEDS ORDERED: hydrALAZINE 20 mg/ml 1 ML Vial IV IV SLOW PU PRN (03:49)
[2020-07-22] MEDS: Aspirin EC 81 mg TAB.EC (enteric coated) PO SCH (08:44)
[2020-07-22] MEDS: RIVASTIGMINE 4.6 MG TRANSDERM SCH (08:47)
[2020-07-22] MEDS ORDERED: Rivastigmine PATCH 4.6 MG(NF) PATCH TRANSDERM SCH (09:00)
[2020-07-22] MEDS: Enoxaparin 40 MG/0.4 ML SYR SUBCUT SCH (21:24)
[2020-07-23] MEDS: NS 0.9% 1000 ml BAG 1,000 ML IV SCH (00:47)
[2020-07-23] MEDS: Aspirin EC 81 mg TAB.EC (enteric coated) PO SCH (09:36)
[2020-07-23] MEDS: RIVASTIGMINE 4.6 MG TRANSDERM SCH (09:47)
[2020-07-23] MEDS: Enoxaparin 40 MG/0.4 ML SYR SUBCUT SCH (20:42)
[2020-07-24] MEDS ORDERED: LORazepam 2 mg VIAL 1 ml IV PUSH ONE (03:03)
[2020-07-24] MEDS ORDERED: Lorazepam PYXIS KEY PRN (03:03)
[2020-07-24] MEDS: Aspirin EC 81 mg TAB.EC (enteric coated) PO SCH (09:54)
[2020-07-24] MEDS: RIVASTIGMINE 4.6 MG TRANSDERM SCH (10:05)
[2020-07-24] MEDS: CMC:SitaGLIPtin 25mg TAB (NF) 25 MG TAB PO SCH (18:42)
[2020-07-24] MEDS: Enoxaparin 40 MG/0.4 ML SYR SUBCUT SCH (20:22)
[2020-07-25] MEDS: Aspirin EC 81 mg TAB.EC (enteric coated) PO SCH (08:51)
[2020-07-25] MEDS: CMC:SitaGLIPtin 25mg TAB (NF) 25 MG TAB PO SCH (08:51)
[2020-07-25] MEDS: RIVASTIGMINE 4.6 MG TRANSDERM SCH (08:51)
[2020-07-25] MEDS: Enoxaparin 40 MG/0.4 ML SYR SUBCUT SCH (20:51)
[2020-07-26] MEDS: Aspirin EC 81 mg TAB.EC (enteric coated) PO SCH (08:50)
[2020-07-26] MEDS: CMC:SitaGLIPtin 25mg TAB (NF) 25 MG TAB PO SCH (08:51)
[2020-07-26] MEDS: RIVASTIGMINE 4.6 MG TRANSDERM SCH (08:52)
[2020-07-26] MEDS ORDERED: Influenza VAC *QUAD* 2020-21* 0.5 ML SYRINGE IM ONE (09:00)
[2020-07-26] MEDS ORDERED: Senna TAB 8.6 mg TAB PO PRN (12:56)
[2020-07-26] MEDS ORDERED: Magnesium Hydroxide LIQ 30 ML UDC PO PRN (12:56)
[2020-07-26] MEDS: Polyethylene Glycol 3350 17 GM PACKET PO PRN (15:57)
[2020-07-26] MEDS: Enoxaparin 40 MG/0.4 ML SYR SUBCUT SCH (19:25)
[2020-07-27] MEDS: RIVASTIGMINE 4.6 MG TRANSDERM SCH (09:26)
[2020-07-27] MEDS: Aspirin EC 81 mg TAB.EC (enteric coated) PO SCH (09:28)
[2020-07-27] MEDS: CMC:SitaGLIPtin 25mg TAB (NF) 25 MG TAB PO SCH (11:56)
[2020-07-27] MEDS: Polyethylene Glycol 3350 17 GM PACKET PO PRN (11:57)
[2020-07-27] MEDS: Enoxaparin 40 MG/0.4 ML SYR SUBCUT SCH (20:48)
[2020-07-28] MEDS ORDERED: LORazepam 2 mg VIAL 1 ml IV PUSH ONE (00:16)
[2020-07-28] MEDS ORDERED: Lorazepam PYXIS KEY PRN (00:16)
[2020-07-28] MEDS ORDERED: LORazepam 2 mg VIAL 1 ml ONE (00:22)
[2020-07-28] MEDS: CMC:SitaGLIPtin 25mg TAB (NF) 25 MG TAB PO SCH (09:03)
[2020-07-28] MEDS: RIVASTIGMINE 4.6 MG TRANSDERM SCH (09:03)
[2020-07-28] MEDS: Aspirin EC 81 mg TAB.EC (enteric coated) PO SCH (09:05)
[2020-07-28 09:14] VITALS: BP 172/94
== END 2020-07-28 16:30 | DRG 884 ==
LOC: ED 18:28 → MED 18:28
PROVIDERS: ADMIT Hospitalist; ATTEND Internal Medicine

== ENCOUNTER 2020-08-10 10:28 | Observation (INO) ==
[2020-08-10 12:06] LABS: ABS Eosinophils 0.3 10^3/ul (0-0.6); ABS Lymphocytes 1.1 10^3/ul (1.0-4.8); ABS Monocytes 0.7 10^3/ul (0-0.8); ABS Neutrophils 5.7 10^3/ul (1.5-7.7); Eosinophil % 4.4 %; Hematocrit 36 % (42-52); Hemoglobin 12.2 g/dL (14.0-18.0); Lymphocyte % 14.4 %; Mean Corpuscular HGB Conc 34 g/dL (31-36); Mean Corpuscular Hemoglobin 32 pg (27-31); Mean Corpuscular Volume 95 fL (80-94); Mean Platelet Volume 9.2 fL (7.4-10.4); Platelet Count 281 10^3/uL (150-450); Red Blood Count 3.77 10^6 /uL (4.18-5.48); Red Cell Distribution Width 13 % (10-15); White Blood Count 7.9 10^3/uL (3.5-10.8)
[2020-08-10 12:19] LABS: Troponin I 0.02 ng/mL (<0.03)
[2020-08-10 12:26] LABS: Activated Partial Thrombo Time 31.6 seconds (26.0-38.0)
[2020-08-10 12:27] LABS: INR 1.16 (0.82-1.09)
[2020-08-10 12:35] LABS: Albumin/Globulin Ratio 1.7 (1-3); BUN/Creatinine Ratio 11.8 (8-20); Calcium 9.5 mg/dL (8.6-10.3); EGFR African American 107.2 (>60); EGFR Non-African American 88.6 (>60); Globulin 2.4 g/dL (2-4); Potassium 4.4 mmol/L (3.5-5.0); Total Bilirubin 0.6 mg/dL (0.2-1.0); Total Protein 6.4 g/dL (6.4-8.9)
[2020-08-10 14:13] LABS: Urine Appearance Clear; Urine Bilirubin Negative (Negative); Urine Blood Negative (Negative); Urine Color Yellow; Urine Glucose 1+(50 mg/dL) (Negative); Urine Ketones Negative (Negative); Urine Nitrite Negative (Negative); Urine Protein Negative (Negative); Urine Specific Gravity 1.015 (1.010-1.030); Urine Urobilinogen Negative (Negative)
[2020-08-10 14:23] LABS: Influenza A Molecular Negative (Negative); Influenza B Molecular Negative (Negative)
[2020-08-10] MEDS ORDERED: Enoxaparin 40 MG/0.4 ML SYR SUBCUT SCH (16:00)
[2020-08-10] MEDS: NS 0.9% 1000 ml BAG 1,000 ML IV SCH (17:53)
[2020-08-10] MEDS ORDERED: Lorazepam PYXIS KEY PRN (22:32)
[2020-08-10] MEDS ORDERED: LORazepam 2 mg VIAL 1 ml IV PUSH ONE (22:32)
[2020-08-11] MEDS ORDERED: Ziprasidone IM 20 mg VIAL 1 ml VIAL IM ONE (00:42)
[2020-08-11] MEDS: NS 0.9% 1000 ml BAG 1,000 ML IV SCH (08:38)
[2020-08-11] MEDS ORDERED: Aspirin EC 81 mg TAB.EC (enteric coated) PO SCH (09:00)
[2020-08-11] MEDS ORDERED: RIVASTIGMINE 4.6 MG TRANSDERM SCH (09:00)
[2020-08-11] MEDS ORDERED: CMCS:SitaGLIPtin 25mg TAB (NF) 25 MG TAB PO SCH (09:00)
[2020-08-11 09:44] LABS: ABS Basophils 0.1 10^3/ul (0-0.2); ABS Eosinophils 0.5 10^3/ul (0-0.6); ABS Lymphocytes 1.6 10^3/ul (1.0-4.8); ABS Monocytes 0.5 10^3/ul (0-0.8); ABS Neutrophils 4.1 10^3/ul (1.5-7.7); Eosinophil % 7.3 %; Hematocrit 33 % (42-52); Hemoglobin 11.4 g/dL (14.0-18.0); Lymphocyte % 23.4 %; Mean Corpuscular HGB Conc 34 g/dL (31-36); Mean Corpuscular Hemoglobin 33 pg (27-31); Mean Corpuscular Volume 95 fL (80-94); Mean Platelet Volume 8.8 fL (7.4-10.4); Platelet Count 271 10^3/uL (150-450); Red Cell Distribution Width 13 % (10-15); White Blood Count 6.8 10^3/uL (3.5-10.8)
[2020-08-11 10:01] LABS: BUN/Creatinine Ratio 12.3 (8-20); Calcium 8.9 mg/dL (8.6-10.3); EGFR African American 127.8 (>60); EGFR Non-African American 105.6 (>60); Potassium 4.3 mmol/L (3.5-5.0)
[2020-08-11 10:51] VITALS: BP 156/86
== END 2020-08-11 14:50 | disposition home or self-care (01) ==
LOC: ED 10:28 → MED 10:28
PROVIDERS: ADMIT Internal Medicine; ATTEND Internal Medicine

== ENCOUNTER 2020-10-02 14:11 | Inpatient (IN) ==
[2020-10-02 15:20] LABS: ABS Basophils 0.1 10^3/ul (0-0.2); ABS Eosinophils 0.1 10^3/ul (0-0.6); ABS Lymphocytes 0.7 10^3/ul (1.0-4.8); ABS Neutrophils 9.3 10^3/ul (1.5-7.7); Eosinophil % 0.6 %; Hematocrit 34 % (42-52); Hemoglobin 11.4 g/dL (14.0-18.0); Mean Corpuscular HGB Conc 34 g/dL (31-36); Mean Corpuscular Hemoglobin 32 pg (27-31); Mean Corpuscular Volume 94 fL (80-94); Mean Platelet Volume 8.5 fL (7.4-10.4); Platelet Count 265 10^3/uL (150-450); Red Blood Count 3.63 10^6 /uL (4.18-5.48); Red Cell Distribution Width 15 % (10-15)
[2020-10-02 15:35] LABS: Influenza A Molecular Negative (Negative); Influenza B Molecular Negative (Negative)
[2020-10-02 15:41] LABS: Albumin 3.6 g/dL (3.2-5.2); Albumin/Globulin Ratio 1.4 (1-3); BUN/Creatinine Ratio 17.7 (8-20); C Reactive Protein 49.85 mg/L (<8.01); Calcium 9.2 mg/dL (8.6-10.3); EGFR African American 93.2 (>60); Globulin 2.6 g/dL (2-4); Total Bilirubin 0.9 mg/dL (0.2-1.0); Total Protein 6.2 g/dL (6.4-8.9)
[2020-10-02 17:03] LABS: Hepatitis B Surface Antigen Nonreactive (Nonreactive)
[2020-10-02 17:08] LABS: Hepatitis A Ab IgM Negative (Negative)
[2020-10-02 17:09] LABS: Hepatitis B Core IgM Nonreactive (Nonreactive)
[2020-10-02 17:21] LABS: Hepatitis C Antibody Negative (Negative)
[2020-10-02] MEDS ORDERED: LORazepam 2 mg VIAL 1 ml IV ONE (18:40)
[2020-10-02] MEDS ORDERED: Lorazepam PYXIS KEY PRN (18:40)
[2020-10-02] MEDS ORDERED: Lorazepam PYXIS KEY ONE (18:44)
[2020-10-02] MEDS ORDERED: NS 0.9% 1000 ml BAG 1,000 ML IV ONE (19:43)
[2020-10-02] MEDS ORDERED: Magnesium Hydroxide LIQ 30 ML UDC PO PRN (20:38)
[2020-10-02] MEDS ORDERED: Polyethylene Glycol 3350 17 GM PACKET PO PRN (20:38)
[2020-10-02] MEDS ORDERED: Piperacillin/Tazobac ADVAN 3.375 GM in NS 0.9% 100 ml BAG 100 ML IV ONE (20:46)
[2020-10-03] MEDS: Lactated Ringers 1000 ml BAG 1,000 ML IV SCH ×2 (00:06→08:36)
[2020-10-03] MEDS: Enoxaparin 40 MG/0.4 ML SYR SUBCUT SCH ×2 (00:17→21:19)
[2020-10-03] MEDS ORDERED: Dextrose 50% Syringe 50 ml 25 GM/50 ML SYRINGE IV PUSH PRN (06:15)
[2020-10-03] MEDS: Aspirin EC 81 mg TAB.EC (enteric coated) PO SCH (10:35)
[2020-10-03] MEDS: RIVASTIGMINE 4.6 MG TRANSDERM SCH (10:36)
[2020-10-03 10:38] LABS: Urine Appearance Clear; Urine Bilirubin Negative (Negative); Urine Blood Negative (Negative); Urine Color Yellow; Urine Glucose Negative (Negative); Urine Ketones 1+ (Negative); Urine Nitrite Negative (Negative); Urine Protein Negative (Negative); Urine Urobilinogen Negative (Negative)
[2020-10-03 10:53] LABS: ABS Eosinophils 0.3 10^3/ul (0-0.6); ABS Lymphocytes 0.7 10^3/ul (1.0-4.8); ABS Monocytes 0.8 10^3/ul (0-0.8); ABS Neutrophils 6.4 10^3/ul (1.5-7.7); Eosinophil % 3.3 %; Hematocrit 33 % (42-52); Hemoglobin 11.1 g/dL (14.0-18.0); Lymphocyte % 8.9 %; Mean Corpuscular HGB Conc 34 g/dL (31-36); Mean Corpuscular Hemoglobin 32 pg (27-31); Mean Corpuscular Volume 95 fL (80-94); Mean Platelet Volume 8.5 fL (7.4-10.4); Platelet Count 228 10^3/uL (150-450); Red Blood Count 3.46 10^6 /uL (4.18-5.48); Red Cell Distribution Width 15 % (10-15); White Blood Count 8.2 10^3/uL (3.5-10.8)
[2020-10-03 11:54] LABS: Albumin 3.4 g/dL (3.2-5.2); Albumin/Globulin Ratio 1.4 (1-3); BUN/Creatinine Ratio 18.6 (8-20); EGFR African American 134.1 (>60); EGFR Non-African American 110.9 (>60); Globulin 2.5 g/dL (2-4); Indirect Bilirubin 0.8 mg/dL (0.3-1.0); Potassium 4.1 mmol/L (3.5-5.0); Total Bilirubin 1.1 mg/dL (0.2-1.0); Total Protein 5.9 g/dL (6.4-8.9)
[2020-10-03] MEDS ORDERED: ZIPRASIDONE HCL 60 MG PO SCH (18:00)
[2020-10-03] MEDS ORDERED: ZOSYN 3.375 GM x ONE DOSE over 30 miuntes IV (23:00)
[2020-10-04] MEDS: ZOSYN 3.375 GM Q8H per EXTENDED INFUSION IV SCH ×3 (03:32→20:48)
[2020-10-04] MEDS: Aspirin EC 81 mg TAB.EC (enteric coated) PO SCH (08:16)
[2020-10-04] MEDS: RIVASTIGMINE 4.6 MG TRANSDERM SCH (08:16)
[2020-10-04 09:17] LABS: ABS Basophils 0.1 10^3/ul (0-0.2); ABS Eosinophils 0.2 10^3/ul (0-0.6); ABS Lymphocytes 0.9 10^3/ul (1.0-4.8); ABS Monocytes 0.8 10^3/ul (0-0.8); ABS Neutrophils 6.8 10^3/ul (1.5-7.7); Eosinophil % 2.6 %; Hematocrit 30 % (42-52); Hemoglobin 10.1 g/dL (14.0-18.0); Lymphocyte % 10.1 %; Mean Corpuscular HGB Conc 34 g/dL (31-36); Mean Corpuscular Hemoglobin 32 pg (27-31); Mean Corpuscular Volume 93 fL (80-94); Mean Platelet Volume 8.5 fL (7.4-10.4); Platelet Count 217 10^3/uL (150-450); Red Blood Count 3.17 10^6 /uL (4.18-5.48); Red Cell Distribution Width 15 % (10-15); White Blood Count 8.7 10^3/uL (3.5-10.8)
[2020-10-04 09:29] LABS: BUN/Creatinine Ratio 15.9 (8-20); Calcium 8.6 mg/dL (8.6-10.3); EGFR African American 136.4 (>60); EGFR Non-African American 112.7 (>60); Potassium 3.7 mmol/L (3.5-5.0)
[2020-10-04] MEDS: Enoxaparin 40 MG/0.4 ML SYR SUBCUT SCH (20:49)
[2020-10-05] MEDS: ZOSYN 3.375 GM Q8H per EXTENDED INFUSION IV SCH (03:52)
[2020-10-05] MEDS: RIVASTIGMINE 4.6 MG TRANSDERM SCH (09:09)
[2020-10-05] MEDS: Aspirin EC 81 mg TAB.EC (enteric coated) PO SCH (09:09)
[2020-10-05 10:15] LABS: ABS Eosinophils 0.4 10^3/ul (0-0.6); ABS Lymphocytes 1.1 10^3/ul (1.0-4.8); ABS Monocytes 0.5 10^3/ul (0-0.8); ABS Neutrophils 2.6 10^3/ul (1.5-7.7); Eosinophil % 8.6 %; Hematocrit 33 % (42-52); Hemoglobin 11.3 g/dL (14.0-18.0); Lymphocyte % 23.8 %; Mean Corpuscular HGB Conc 34 g/dL (31-36); Mean Corpuscular Hemoglobin 32 pg (27-31); Mean Corpuscular Volume 94 fL (80-94); Mean Platelet Volume 8.1 fL (7.4-10.4); Platelet Count 280 10^3/uL (150-450); Red Blood Count 3.54 10^6 /uL (4.18-5.48); Red Cell Distribution Width 14 % (10-15); White Blood Count 4.7 10^3/uL (3.5-10.8)
[2020-10-05 10:33] LABS: Albumin 3.5 g/dL (3.2-5.2); Albumin/Globulin Ratio 1.3 (1-3); BUN/Creatinine Ratio 11.3 (8-20); CRP High Sensitivity 61.7 mg/L (<2.00); Calcium 9.4 mg/dL (8.6-10.3); Globulin 2.7 g/dL (2-4); Potassium 4.4 mmol/L (3.5-5.0); Total Bilirubin 0.5 mg/dL (0.2-1.0); Total Protein 6.2 g/dL (6.4-8.9)
[2020-10-05] MEDS: Enoxaparin 40 MG/0.4 ML SYR SUBCUT SCH ×2 (22:02→22:05)
[2020-10-06 05:41] LABS: ABS Eosinophils 0.4 10^3/ul (0-0.6); ABS Lymphocytes 1.4 10^3/ul (1.0-4.8); ABS Monocytes 0.6 10^3/ul (0-0.8); Eosinophil % 6.2 %; Hematocrit 30 % (42-52); Hemoglobin 10.2 g/dL (14.0-18.0); Mean Corpuscular HGB Conc 34 g/dL (31-36); Mean Corpuscular Hemoglobin 32 pg (27-31); Mean Corpuscular Volume 93 fL (80-94); Mean Platelet Volume 8.1 fL (7.4-10.4); Platelet Count 285 10^3/uL (150-450); Red Cell Distribution Width 15 % (10-15); White Blood Count 6.5 10^3/uL (3.5-10.8)
[2020-10-06 05:58] LABS: BUN/Creatinine Ratio 21.9 (8-20); Calcium 9.3 mg/dL (8.6-10.3); EGFR African American 148.7 (>60); EGFR Non-African American 122.9 (>60)
[2020-10-06] MEDS: Aspirin EC 81 mg TAB.EC (enteric coated) PO SCH (08:42)
[2020-10-06] MEDS: RIVASTIGMINE 4.6 MG TRANSDERM SCH (08:48)
[2020-10-06] MEDS: Enoxaparin 40 MG/0.4 ML SYR SUBCUT SCH (21:14)
[2020-10-07] MEDS: Aspirin EC 81 mg TAB.EC (enteric coated) PO SCH (09:30)
[2020-10-07] MEDS: RIVASTIGMINE 4.6 MG TRANSDERM SCH (09:40)
[2020-10-07] MEDS ORDERED: Sodium Phosphate ADULT ENEMA 133 ML BTL PR ONE (12:55)
[2020-10-07 12:57] VITALS: BP 122/70
[2020-10-07 16:19] LABS: Adenovirus Negative (Negative); Bordetella parapertussis Negative (Negative); Bordetella pertussis Negative (Negative); Chlamydophila pneumoniae Negative (Negative); Coronavirus 229E Negative (Negative); Coronavirus HKU1 Negative (Negative); Coronavirus NL63 Negative (Negative); Coronavirus OC43 Negative (Negative); Human Metapneumovirus Negative (Negative); Human Rhinovirus/ Enterovirus Negative (Negative); Influenza A Negative (Negative); Influenza B Negative (Negative); Mycoplasmoides pneumoniae Negative (Negative); Parainfluenza Virus 1 Negative (Negative); Parainfluenza Virus 2 Negative (Negative); Parainfluenza Virus 3 Negative (Negative); Parainfluenza Virus 4 Negative (Negative); Respiratory Syncytial Virus Negative (Negative); Specimen Source NASOPHARYNGEAL SWAB
[2020-10-08 00:39] LABS: Anaplasma phagocytophilum Negative (Negative); B. miyamotoi PCR, B Negative (Negative); Babesia divergens/MO-1 Negative (Negative); Babesia ducani Negative (Negative); Ehrlichia chaffeensis Negative (Negative); Ehrlichia ewingii/canis Negative (Negative); Ehrlichia muris eauclairensis Negative (Negative)
== END 2020-10-07 14:50 | DRG 872 ==
LOC: ED 14:11 → MED 14:11
PROVIDERS: ADMIT Internal Medicine; ATTEND Student in an Organized Health Care Education/Training Program

== ENCOUNTER 2021-12-29 15:40 | Observation (INO) ==
[2021-12-29 16:47] LABS: ABS Basophils 0.1 10^3/ul (0-0.2); ABS Lymphocytes 1.4 10^3/ul (1.0-4.8); ABS Neutrophils 8.7 10^3/ul (1.5-7.7); Eosinophil % 0.4 %; Hematocrit 38 % (42-52); Hemoglobin 12.9 g/dL (14.0-18.0); Lymphocyte % 12.5 %; Mean Corpuscular HGB Conc 34 g/dL (31-36); Mean Corpuscular Hemoglobin 32 pg (27-31); Mean Corpuscular Volume 95 fL (80-94); Platelet Count 233 10^3/uL (150-450); Red Blood Count 3.98 10^6 /uL (4.18-5.48); Red Cell Distribution Width 14 % (10-15); White Blood Count 11.2 10^3/uL (3.5-10.8)
[2021-12-29 17:14] LABS: ALT 11 U/L (7-52); Albumin 4.1 g/dL (3.2-5.2); Albumin/Globulin Ratio 1.5 (1-3); Alkaline Phosphatase 46 U/L (35-149); Blood Urea Nitrogen 14 mg/dL (6-24); CO2 Carbon Dioxide 30 mmol/L (22-32); Calcium 10.1 mg/dL (8.6-10.3); Chloride 102 mmol/L (101-111); Globulin 2.7 g/dL (2-4); Glucose 177 mg/dL (70-100); Sodium 138 mmol/L (135-145); Total Protein 6.8 g/dL (6.4-8.9); eGFR CKD-EPI 65.8 (>60)
[2021-12-29 17:25] LABS: Anion Gap 6 mmol/L (2-11); Troponin I 0.05 ng/mL (<0.03)
[2021-12-29] MEDS ORDERED: LORazepam 2 mg VIAL 1 ml IV PUSH ONE ×2 (18:08→18:23)
[2021-12-29] MEDS ORDERED: Lorazepam PYXIS KEY PRN ×2 (18:08→18:23)
[2021-12-29] MEDS ORDERED: Polyethylene Glycol 3350 17 GM PACKET PO PRN (19:51)
[2021-12-29] MEDS ORDERED: Magnesium Hydroxide LIQ 30 ML UDC PO PRN (19:51)
[2021-12-29] MEDS ORDERED: Senna TAB 8.6 mg TAB PO PRN (19:51)
[2021-12-29 20:25] LABS: C Reactive Protein 16.07 mg/L (<8.01)
[2021-12-29 21:23] LABS: Troponin I 0.05 ng/mL (<0.03)
[2021-12-29] MEDS: Enoxaparin 40 MG/0.4 ML SYR SUBCUT SCH (21:35)
[2021-12-29 22:19] LABS: Urine Appearance Clear; Urine Bilirubin Negative (Negative); Urine Blood Negative (Negative); Urine Color Yellow; Urine Glucose Negative (Negative); Urine Ketones 1+ (Negative); Urine Nitrite Negative (Negative); Urine Protein Negative (Negative); Urine Specific Gravity 1.018 (1.002-1.030); Urine Urobilinogen Negative (Negative)
[2021-12-29 22:23] LABS: TSH Ultra Thyroid Stim Horm 0.88 mcIU/mL (0.34-5.60)
[2021-12-29 22:35] LABS: Vitamin B12 > 1450 pg/mL (180-914)
[2021-12-29] MEDS ORDERED: hydrALAZINE 20 mg/ml 1 ML Vial IV IV SLOW PU PRN (22:43)
[2021-12-29] MEDS: Magnesium Hydroxide LIQ 30 ML UDC PO SCH (23:05)
[2021-12-29] MEDS: Lactated Ringers 1000 ml BAG 1,000 ML IV SCH (23:17)
[2021-12-29 23:19] LABS: Potassium, Whole Blood 4.8 mmol/L (3.4-4.5)
[2021-12-30 02:04] LABS: Urine Appearance Clear; Urine Bilirubin Negative (Negative); Urine Blood Negative (Negative); Urine Color Yellow; Urine Glucose 1+(50 mg/dL) (Negative); Urine Ketones 1+ (Negative); Urine Nitrite Negative (Negative); Urine Protein 1+(30 mg/dL) (Negative); Urine Urobilinogen Negative (Negative)
[2021-12-30 02:17] LABS: Urine Bacteria Absent (Absent); Urine Red Blood Cell 2+(6-10/hpf) (Absent); Urine Squamous Epithelial Cell Present (Absent); Urine White Blood Cell 2+(11-20/hpf) (Absent)
[2021-12-30 06:02] LABS: ABS Eosinophils 0.4 10^3/ul (0-0.6); ABS Monocytes 0.7 10^3/ul (0-0.8); ABS Neutrophils 4.5 10^3/ul (1.5-7.7); Eosinophil % 5.1 %; Hematocrit 37 % (42-52); Hemoglobin 12.6 g/dL (14.0-18.0); Lymphocyte % 25.9 %; Mean Corpuscular HGB Conc 34 g/dL (31-36); Mean Corpuscular Hemoglobin 32 pg (27-31); Mean Corpuscular Volume 95 fL (80-94); Mean Platelet Volume 8.6 fL (7.4-10.4); Platelet Count 209 10^3/uL (150-450); Red Cell Distribution Width 14 % (10-15); White Blood Count 7.6 10^3/uL (3.5-10.8)
[2021-12-30 06:19] LABS: C Reactive Protein 34.61 mg/L (<8.01); Calcium 9.3 mg/dL (8.6-10.3); Potassium 4.1 mmol/L (3.5-5.0); eGFR CKD-EPI 91.8 (>60)
[2021-12-30] MEDS: Aspirin EC 81 mg TAB.EC (enteric coated) PO SCH (08:55)
[2021-12-30] MEDS: Magnesium Hydroxide LIQ 30 ML UDC PO SCH (08:55)
[2021-12-30] MEDS: Lactated Ringers 1000 ml BAG 1,000 ML IV SCH (12:38)
[2021-12-30] MEDS ORDERED: Olopatadine 0.1% OPHTH (NF) 1 DROP BTL BOTH EYES PRN (18:42)
[2021-12-30] MEDS: Enoxaparin 40 MG/0.4 ML SYR SUBCUT SCH (19:35)
[2021-12-30] MEDS ORDERED: LORazepam 2 mg VIAL 1 ml IV PUSH ONE (19:49)
[2021-12-30] MEDS ORDERED: Lorazepam PYXIS KEY PRN (19:49)
[2021-12-31] MEDS: Lactated Ringers 1000 ml BAG 1,000 ML IV SCH (02:15)
[2021-12-31 05:59] LABS: ABS Basophils 0.1 10^3/ul (0-0.2); ABS Eosinophils 0.6 10^3/ul (0-0.6); ABS Lymphocytes 2.2 10^3/ul (1.0-4.8); ABS Monocytes 0.6 10^3/ul (0-0.8); Eosinophil % 8.8 %; Hematocrit 36 % (42-52); Hemoglobin 12.1 g/dL (14.0-18.0); Lymphocyte % 34.1 %; Mean Corpuscular HGB Conc 34 g/dL (31-36); Mean Corpuscular Hemoglobin 32 pg (27-31); Mean Corpuscular Volume 95 fL (80-94); Mean Platelet Volume 8.4 fL (7.4-10.4); Nucleated Red Blood Cells % 0.1; Platelet Count 212 10^3/uL (150-450); Red Blood Count 3.78 10^6 /uL (4.18-5.48); Red Cell Distribution Width 14 % (10-15); White Blood Count 6.3 10^3/uL (3.5-10.8)
[2021-12-31 06:22] LABS: Albumin 3.5 g/dL (3.2-5.2); Albumin/Globulin Ratio 1.6 (1-3); Calcium 9.1 mg/dL (8.6-10.3); Globulin 2.2 g/dL (2-4); Potassium 4.4 mmol/L (3.5-5.0); Total Bilirubin 0.3 mg/dL (0.2-1.0); Total Protein 5.7 g/dL (6.4-8.9); eGFR CKD-EPI 84.5 (>60)
[2021-12-31] MEDS: Aspirin EC 81 mg TAB.EC (enteric coated) PO SCH (10:11)
[2021-12-31] MEDS: Magnesium Hydroxide LIQ 30 ML UDC PO SCH (10:11)
[2021-12-31] MEDS ORDERED: hydrALAZINE 20 mg/ml 1 ML Vial IV IV SLOW PU PRN (10:51)
[2021-12-31 12:11] VITALS: BP 172/82
== END 2021-12-31 13:28 | disposition home or self-care (01) ==
LOC: ED 15:40 → INTOOBSV 19:28 → SUATTDRO 19:28 → EDHOLD 19:28 → MEDTELE 23:37 → UNDODISOB 12-31 11:24
PROVIDERS: ADMIT Internal Medicine; ATTEND Hospitalist

== ENCOUNTER 2023-09-24 14:35 | Inpatient (IN) ==
[2023-09-24 16:08] LABS: ABS Eosinophils 0.3 10^3/uL (0.0-0.5); ABS Lymphocytes 1.7 10^3/uL (1.0-4.8); ABS Monocytes 0.6 10^3/uL (0.0-1.1); ABS Neutrophils 4.4 10^3/uL (1.5-7.6); Eosinophil % 4.2 %; Hemoglobin 13.2 g/dL (13.2-16.3); Lymphocyte % 24.1 %; Mean Corpuscular Hemoglobin 32.3 pg (27-33); Mean Corpuscular Hgb Conc 33.9 g/dL (31-36); Mean Corpuscular Volume 95.3 fL (80-97); Mean Platelet Volume 8.3 fL (7.5-11.2); Nucleated Red Blood Cells % 0.1 %/100WBC (0.0-0.8); Platelet Count 334 10^3/uL (150-450); Red Blood Count 4.09 10^6/uL (4.06-5.63); Red Cell Distribution Width 13.3 % (12-17)
[2023-09-24] MEDS ORDERED: Lactated Ringers 1000 ml BAG 1,000 ML IV ONE (16:08)
[2023-09-24 16:34] LABS: ALT 9 U/L (7-52); AST 17 U/L (13-39); Albumin 4.2 g/dL (3.2-5.2); Albumin/Globulin Ratio 1.4 (1-3); Alkaline Phosphatase 46 U/L (35-149); Anion Gap 7 mmol/L (2-16); Blood Urea Nitrogen 36 mg/dL (6-24); CO2 Carbon Dioxide 34 mmol/L (22-32); Calcium 10.2 mg/dL (8.6-10.3); Chloride 104 mmol/L (101-111); Creatinine, Serum 1.32 mg/dL (0.67-1.17); Glucose 167 mg/dL (70-100); Magnesium 2.3 mg/dL (1.9-2.7); Potassium 4.4 mmol/L (3.5-5.0); Sodium 145 mmol/L (135-145); Total Bilirubin 0.3 mg/dL (0.2-1.0); Total Protein 7.2 g/dL (6.4-8.9); eGFR CKD-EPI 56.2 (>60)
[2023-09-24 17:15] LABS: Alcohol, S < 13 mg/dL (<13)
[2023-09-24] MEDS ORDERED: Senna TAB 8.6 mg TAB PO PRN (17:52)
[2023-09-24] MEDS ORDERED: CMC:Olopatadine 0.1% OPHTH (NF) 1 DROP BTL BOTH EYES PRN (17:52)
[2023-09-24] MEDS ORDERED: Polyethylene Glycol 3350 17 GM PACKET PO PRN (17:52)
[2023-09-24] MEDS ORDERED: D5W 1/2 NS 1000 ml BAG 1,000 ML IV SCH (18:00)
[2023-09-24] MEDS ORDERED: LORazepam 2 mg VIAL 1 ml IV PUSH ONE (18:04)
[2023-09-24] MEDS ORDERED: Lorazepam PYXIS KEY PRN (18:04)
[2023-09-24 18:22] LABS: Urine Appearance Clear; Urine Bilirubin Negative (Negative); Urine Blood Negative (Negative); Urine Color Yellow; Urine Glucose Negative (Negative); Urine Ketones Trace (Negative); Urine Nitrite Negative (Negative); Urine Protein Negative (Negative); Urine Urobilinogen Negative (Negative)
[2023-09-24] MEDS ORDERED: Dextrose 50% Syringe 50 ml 25 GM/50 ML SYRINGE IV PUSH PRN (22:00)
[2023-09-24] MEDS: Aspirin EC 81 mg TAB.EC (enteric coated) PO SCH (22:34)
[2023-09-24] MEDS ORDERED: hydrALAZINE 20 mg/ml 1 ML Vial IV IV SLOW PU ONE (22:49)
[2023-09-25 06:11] LABS: ABS Basophils 0.1 10^3/uL (0.0-0.1); ABS Eosinophils 0.5 10^3/uL (0.0-0.5); ABS Lymphocytes 1.9 10^3/uL (1.0-4.8); ABS Monocytes 0.7 10^3/uL (0.0-1.1); ABS Neutrophils 4.4 10^3/uL (1.5-7.6); Hematocrit 38.9 % (38-53); Hemoglobin 13.1 g/dL (13.2-16.3); Lymphocyte % 25.5 %; Mean Corpuscular Hgb Conc 33.6 g/dL (31-36); Mean Platelet Volume 8.5 fL (7.5-11.2); Nucleated Red Blood Cells % 0.1 %/100WBC (0.0-0.8); Platelet Count 308 10^3/uL (150-450); Red Blood Count 4.09 10^6/uL (4.06-5.63); White Blood Count 7.6 10^3/uL (3.6-10.2)
[2023-09-25 06:44] LABS: Creatinine, Serum 0.82 mg/dL (0.67-1.17); HDL Cholesterol 25.9 mg/dL; Phosphorus 2.7 mg/dL (2.5-5.0); Potassium 3.7 mmol/L (3.5-5.0); eGFR CKD-EPI 91.6 (>60)
[2023-09-25 07:00] LABS: TSH Ultra Thyroid Stim Horm 1.19 mcIU/mL (0.34-5.60)
[2023-09-25] MEDS: Aspirin EC 81 mg TAB.EC (enteric coated) PO SCH (09:04)
[2023-09-25] MEDS ORDERED: Iodixanol (CONTRAST) 320 MG/ML 100 ML SDV IV ONE (13:19)
[2023-09-26] MEDS: Aspirin EC 81 mg TAB.EC (enteric coated) PO SCH (09:00)
[2023-09-27 10:21] LABS: ABS Eosinophils 0.4 10^3/uL (0.0-0.5); ABS Lymphocytes 1.2 10^3/uL (1.0-4.8); ABS Monocytes 0.7 10^3/uL (0.0-1.1); ABS Neutrophils 5.5 10^3/uL (1.5-7.6); ABS Nucleated RBC 0.01 10^3/ul; Eosinophil % 5.7 %; Hemoglobin 13.2 g/dL (13.2-16.3); Lymphocyte % 15.3 %; Mean Corpuscular Hgb Conc 33.9 g/dL (31-36); Mean Corpuscular Volume 94.4 fL (80-97); Mean Platelet Volume 8.8 fL (7.5-11.2); Nucleated Red Blood Cells % 0.1 %/100WBC (0.0-0.8); Platelet Count 338 10^3/uL (150-450); Red Blood Count 4.14 10^6/uL (4.06-5.63); Red Cell Distribution Width 13.1 % (12-17); White Blood Count 7.9 10^3/uL (3.6-10.2)
[2023-09-27 10:39] LABS: Calcium 9.5 mg/dL (8.6-10.3); Creatinine, Serum 0.83 mg/dL (0.67-1.17); Magnesium 1.8 mg/dL (1.9-2.7); Phosphorus 2.4 mg/dL (2.5-5.0); Potassium 4.2 mmol/L (3.5-5.0); eGFR CKD-EPI 91.3 (>60)
[2023-09-27 11:19] VITALS: BP 140/68
[2023-09-27] MEDS: Aspirin EC 81 mg TAB.EC (enteric coated) PO SCH (11:35)
== END 2023-09-27 14:00 | DRG 65 ==
LOC: ED 14:35 → EDHOLD 17:45 → SUATTDRO 17:45 → MEDTELE 18:55
PROVIDERS: ADMIT Internal Medicine; ATTEND Internal Medicine